=== PATIENT | female | born 1940 | race Caucasian/White ===

== ENCOUNTER 2016-09-30 15:34 | Observation (INO) | payer OTHER ==
[~2016-09-30] VITALS: Ht 162.6 cm; Wt 51.2 kg
[~2016-09-30 15:34] MED LIST: ASPEC81 PO; METO1TAB69 PO; NRV5 PO; ZCR20 PO
[2016-09-30] MEDS ORDERED: SODIUM CHLORIDE 0.9% 1000ML 1,000 ML IV SCH (16:36)
[2016-09-30 17:11] LABS: BASO % 0.1 %; BASO ABS # 0.01 K/uL (0-0.2); COMPLETE YES; EOS % 0.4 %; HEMATOCRIT 48.2 % (37-47); IG% 0.3 %; LYMPH % 21.7 %; LYMPH ABS # 1.48 K/uL (1.2-3.4); MEAN CELL VOLUME 91.5 fL (80-100); MEAN CORPUSCULAR HEMOGLOBIN 31.7 pg (25-34); MEAN CORPUSCULAR HGB CONC 34.6 g/dl (32-36); MEAN PLATELET VOLUME 9.9 fL (7.4-10.4); MONO % 7.2 %; NEUT % 70.3 %; PLATELET COUNT 227 K/uL (130-400); RED BLOOD COUNT 5.27 M/uL (4.2-5.4); WHITE BLOOD COUNT 6.82 K/uL (4.8-10.8)
[2016-09-30] MEDS ORDERED: NRV/10 PO (17:20)
[2016-09-30] MEDS ORDERED: CHOL1TAB42 PO (17:21)
[2016-09-30 17:28] LABS: BLOOD UREA NITROGEN 19 mg/dl (7-18); BUN/CREATININE RATIO 24.8 (10-20); CALCIUM 9.6 mg/dl (8.5-10.1); CARBON DIOXIDE 28 mmol/L (21-32); CHLORIDE 103 mmol/L (98-107); CREATININE 0.75 mg/dl (0.60-1.20); GLUCOSE 79 mg/dl (70-99); POTASSIUM 4.1 mmol/L (3.5-5.1); SODIUM 139 mmol/L (136-145)
--- NOTE | 2016-09-30 17:30 | DIAGNOSTIC IMAGING REPORT ---
SINGLE VIEW CHEST CLINICAL HISTORY: Strokelike symptoms. FINDINGS: An AP, portable, upright chest radiograph is compared to study dated 07/28/2014. The examination is degraded by portable technique and patient rotation. The heart is mildly enlarged. The pulmonary vascular is noncongested. The lungs appear hyperinflated. Emphysema is suggested and chronic interstitial thickening is similar to previous. No airspace consolidation, pleural effusion, or pneumothorax is seen. A 1.3 cm nodular density projects over the right lung base. The skeletal structures are osteopenic. The bony thorax is grossly intact. IMPRESSION: 1. Cardiomegaly and suspect emphysema. No acute cardiopulmonary abnormality is identified. 2. A 1.3 cm nodular density projects over the right lung base. This could represent artifact, a pulmonary nodule, or nipple shadow. Follow-up with a dedicated PA and lateral examination with nipple markers is recommended when the patient is clinically able. Electronically signed by: Remy Urias M.D. 09/30/2016 5:29 PM Dictated Date/Time: 09/30/2016 5:26 PM
[2016-09-30 17:31] LABS: PROTHROMBIN TIME (PATIENT) 10.5 SECONDS (9.0-12.0)
--- NOTE | 2016-09-30 18:40 | DIAGNOSTIC IMAGING REPORT ---
CT SCAN OF THE BRAIN WITHOUT IV CONTRAST CLINICAL HISTORY: Left-sided numbness. COMPARISON STUDY: CT of the brain dated 07/28/2014. TECHNIQUE: Unenhanced axial CT scan of the brain is performed from the vertex to the skull base. CT DOSE: 687.98 mGy.cm FINDINGS: Brain parenchyma: There are age-related involutional changes noting mild patchy subcortical and periventricular microangiopathic change. There is no hemorrhage, mass effect, or evidence of acute territorial ischemia by CT criteria. A chronic lacunar infarct versus perivascular space is again seen in the right basal ganglion. Santos-white matter is preserved. No extra-axial fluid collection is seen. Ventricles, sulci, cisterns: Prominent secondary to involutional change. Intracranial vasculature: There is atherosclerotic calcification of the cavernous carotid and vertebral arteries. Calvarium: Unremarkable. Sinuses and mastoids: There is complete opacification of the right maxillary antrum. Thickening and sclerosis of the sinus wall indicate chronicity. There is complete opacification of the anterior right ethmoid sinuses, as well as subtotal opacification of the right frontal sinus. The mastoid air cells are well pneumatized. Orbits: The bony orbits are grossly intact. There are bilateral ocular lens implants. IMPRESSION: 1. There is no hemorrhage, mass effect, or evidence of acute territorial ischemia by CT criteria. 2. Chronic appearing paranasal sinus disease as above. Electronically signed by: Remy Urias M.D. 09/30/2016 6:38 PM Dictated Date/Time: 09/30/2016 6:36 PM
[2016-09-30] MEDS ORDERED: LABETALOL HCL IV 5 MG/ML 20ML IV STA (18:49)
[2016-09-30] MEDS ORDERED: LISINOPRIL 5 MG TAB PO ONE (20:20)
[2016-09-30 20:27] LABS: ALKALINE PHOSPHATASE 88 U/L (45-117); ALT/SGPT 27 U/L (12-78); AST/SGOT 19 U/L (15-37); MAGNESIUM 2.5 mg/dl (1.8-2.4)
[2016-09-30 20:30] VITALS: BP 161/77; PULSE 74; TEMP 37; O2SAT 97; Ht 162.6 cm; Wt 51.2 kg
[2016-09-30] MEDS ORDERED: ACETAMINOPHEN 325 MG TAB PO PRN (20:30)
[2016-09-30] MEDS ORDERED: SODIUM CHLORIDE 0.9% 1000ML 1,000 ML IV ONE (20:30)
[2016-09-30] MEDS ORDERED: ONDANSETRON INJ 2 MG/ML 2 ML VIAL IV PRN (20:30)
[2016-09-30] MEDS ORDERED: TRAMADOL HCL 50 MG TAB PO PRN (20:30)
[2016-09-30] MEDS ORDERED: PHARMACIST DISCHARGE MED REC CONSULT PRN (20:30)
[2016-09-30] MEDS ORDERED: MoRPHine SULFATE 4 MG/ML 1 ML CARP\\VIAL IV PRN (20:30)
[2016-09-30] MEDS ORDERED: NITROGLYCERIN 0.4 MG SL PER TAB CHARGE SL PRN (20:30)
[2016-09-30] MEDS ORDERED: LISINOPRIL 2.5 MG TAB PO ONE (20:34)
[2016-09-30] MEDS: ENOXAPARIN 30 MG/0.3 ML SYR SC SCH (22:18)
--- NOTE | 2016-09-30 22:39 | EMERGENCY ROOM VISIT NOTE ---
History Report prepared by Loree: Alirio Panchal Under the Supervision of: Dr. Wallace Browning M.D. First contact with patient: 16:27 Chief Complaint: NEURO SYMPTOMS Stated Complaint: LF ARM/LEG NUMBNESS, History of Present Illness The patient is a 76 year old female who presents to the Emergency Room with complaints of episodes of neuro symptoms that started 2 mornings ago. She says that she has had a tendency to have intermittent silent migraines since the , where she just has an aura. The patient states that her eye doctor diagnosed her with the silent migraines. The patient says that she had not been having them frequently, but 2 mornings ago, she was having them all morning. She states that she sees jagged lights but can still see. The patient notes that they went away but yesterday morning, she woke up with left arm and left leg tingling, which she described as "falling asleep". She says that these tingling episodes were intermittent, and lasted more than a few seconds. The patient states that these episodes stopped yesterday afternoon, but have come back since then and have been intermittent today. She says that she did not have any auras yesterday, but did have a mild headache throughout yesterday. She states that today, she has not had any silent migraines or headache. The patient adds that she has been feeling some weakness on the left side, and is not overall feeling well. She notes that she has been having intermittent chills as well. The patient has a history of hypertension, and says that she has been taking her blood pressure medication as prescribed. She denies any fevers, chest pain, shortness of breath, abdominal pain, trouble walking, or trouble swallowing. The patient is not on any blood thinners. She has no history of strokes. Source of History: patient Onset: 2 mornings ago Position: other (global - neuro symptoms) Quality: other (silent migraines, tingling) Timing: other (episodes) Associated Symptoms: + chills, + headache, + weakness, No fevers, No chest pain, No SOB, No abdominal pain Note: Associated symptoms: Intermittent episodes of left arm and leg leg tingling. Silent migraine auras 2 days ago. Overall not feeling well. Denies trouble walking or trouble swallowing. Review of Systems See HPI for pertinent positives & negatives. A total of 10 systems reviewed and were otherwise negative. Past Medical & Surgical Medical Problems: (1) Hypertension (2) Left sided numbness (3) Left-sided weakness Family History Family history omitted secondary to patient's advanced age. Social History Smoking Status: Never Smoker Marital Status: Housing Status: lives with family Occupation Status: unemployed Current/Historical Medications Scheduled Amlodipine Besylate (Amlodipine Besylate), 10 MG PO DAILY Cholecalciferol (Vitamin D), 10,000 UNITS PO DAILY Allergies Coded Allergies: No Known Allergies (Unverified , 07/28/14) Physical Exam Vital Signs Date Time Temp Pulse Resp B/P (MAP) Pulse Ox O2 Delivery O2 Flow Rate FiO2 09/30/16 19:23 73 09/30/16 19:19 80 20 143/90 97 Room Air 09/30/16 17:35 85 20 199/93 97 Room Air 09/30/16 17:34 95 Room Air 09/30/16 15:49 36.7 107 16 173/92 96 Room Air Physical Exam Constitutional: Vital signs reviewed. Eyes: Pupils are equal round reactive to light. Conjunctiva are noninjected. ENT: Pharynx is clear without erythema or exudate. Mucous membranes are moist. Neck supple without meningeal signs. Respiratory: Clear to auscultation bilaterally. Breath sounds are equal bilaterally. Cardiovascular: Regular rate and rhythm. No rubs or gallops. GI: Soft, nondistended and nontender. Bowel sounds are present. Musculoskeletal: No peripheral edema. No lower extremity tenderness. Integumentary: No cyanosis. Neurological: The patient is awake and alert. Cranial nerves II-XII are intact. Motor is 5 out of 5 all extremities. Sensation is intact to light touch all extremities. Normal speech. No pronator drift. No limb ataxia. Psychiatric: Normal affect. Medical Decision & Procedures ER Provider Diagnostic Interpretation: Radiology results as stated below per my review and the radiologist's interpretation: CT SCAN OF THE BRAIN WITHOUT IV CONTRAST CLINICAL HISTORY: Left-sided numbness. COMPARISON STUDY: CT of the brain dated 07/28/2014. TECHNIQUE: Unenhanced axial CT scan of the brain is performed from the vertex to the skull base. CT DOSE: 687.98 mGy.cm FINDINGS: Brain parenchyma: There are age-related involutional changes noting mild patchy subcortical and periventricular microangiopathic change. There is no hemorrhage, mass effect, or evidence of acute territorial ischemia by CT criteria. A chronic lacunar infarct versus perivascular space is again seen in the right basal ganglion. Santos-white matter is preserved. No extra-axial fluid collection is seen. Ventricles, sulci, cisterns: Prominent secondary to involutional change. Intracranial vasculature: There is atherosclerotic calcification of the cavernous carotid and vertebral arteries. Calvarium: Unremarkable. Sinuses and mastoids: There is complete opacification of the right maxillary antrum. Thickening and sclerosis of the sinus wall indicate chronicity. There is complete opacification of the anterior right ethmoid sinuses, as well as subtotal opacification of the right frontal sinus. The mastoid air cells are well pneumatized. Orbits: The bony orbits are grossly intact. There are bilateral ocular lens implants. IMPRESSION: 1. There is no hemorrhage, mass effect, or evidence of acute territorial ischemia by CT criteria. 2. Chronic appearing paranasal sinus disease as above. Electronically signed by: Remy Urias M.D. 09/30/2016 6:38 PM Dictated Date/Time: 09/30/2016 6:36 PM SINGLE VIEW CHEST CLINICAL HISTORY: Strokelike symptoms. FINDINGS: An AP, portable, upright chest radiograph is compared to study dated 07/28/2014. The examination is degraded by portable technique and patient rotation. The heart is mildly enlarged. The pulmonary vascular is noncongested. The lungs appear hyperinflated. Emphysema is suggested and chronic interstitial thickening is similar to previous. No airspace consolidation, pleural effusion, or pneumothorax is seen. A 1.3 cm nodular density projects over the right lung base. The skeletal structures are osteopenic. The bony thorax is grossly intact. IMPRESSION: 1. Cardiomegaly and suspect emphysema. No acute cardiopulmonary abnormality is identified. 2. A 1.3 cm nodular density projects over the right lung base. This could represent artifact, a pulmonary nodule, or nipple shadow. Follow-up with a dedicated PA and lateral examination with nipple markers is recommended when the patient is clinically able. Electronically signed by: Remy Urias M.D. 09/30/2016 5:29 PM Dictated Date/Time: 09/30/2016 5:26 PM Laboratory Results 09/30/16 16:55 Red Blood Count 5.27, Mean Corpuscular Volume 91.5, Mean Corpuscular Hemoglobin 31.7, Mean Corpuscular Hemoglobin Concent 34.6, Mean Platelet Volume 9.9, Neutrophils (%) (Auto) 70.3, Lymphocytes (%) (Auto) 21.7, Monocytes (%) (Auto) 7.2, Eosinophils (%) (Auto) 0.4, Basophils (%) (Auto) 0.1, Neutrophils # (Auto) 4.79, Lymphocytes # (Auto) 1.48, Monocytes # (Auto) 0.49, Eosinophils # (Auto) 0.03, Basophils # (Auto) 0.01 09/30/16 16:55 Test 09/30/16 16:55 09/30/16 17:08 White Blood Count 6.82 K/uL (4.8-10.8) Red Blood Count 5.27 M/uL (4.2-5.4) Hemoglobin 16.7 g/dL (12.0-16.0) Hematocrit 48.2 % (37-47) Mean Corpuscular Volume 91.5 fL (80-100) Mean Corpuscular Hemoglobin 31.7 pg (25-34) Mean Corpuscular Hemoglobin Concent 34.6 g/dl (32-36) Platelet Count 227 K/uL (130-400) Mean Platelet Volume 9.9 fL (7.4-10.4) Neutrophils (%) (Auto) 70.3 % Lymphocytes (%) (Auto) 21.7 % Monocytes (%) (Auto) 7.2 % Eosinophils (%) (Auto) 0.4 % Basophils (%) (Auto) 0.1 % Neutrophils # (Auto) 4.79 K/uL (1.4-6.5) Lymphocytes # (Auto) 1.48 K/uL (1.2-3.4) Monocytes # (Auto) 0.49 K/uL (0.11-0.59) Eosinophils # (Auto) 0.03 K/uL (0-0.5) Basophils # (Auto) 0.01 K/uL (0-0.2) RDW Standard Deviation 48.7 fL (36.4-46.3) RDW Coefficient of Variation 14.4 % (11.5-14.5) Immature Granulocyte % (Auto) 0.3 % Immature Granulocyte # (Auto) 0.02 K/uL (0.00-0.02) Prothrombin Time 10.5 SECONDS (9.0-12.0) Prothromb Time International Ratio 1.0 (0.9-1.1) Activated Partial Thromboplast Time 26.8 SECONDS (21.0-31.0) Partial Thromboplastin Ratio 1.0 Anion Gap 8.0 mmol/L (3-11) Est Creatinine Clear Calc Drug Dose 51.1 ml/min Estimated GFR () 88.5 Estimated GFR (Non- 76.3 BUN/Creatinine Ratio 24.8 (10-20) Calcium Level 9.6 mg/dl (8.5-10.1) Magnesium Level 2.5 mg/dl (1.8-2.4) Total Bilirubin 0.6 mg/dl (0.2-1) Direct Bilirubin < 0.1 mg/dl (0-0.2) Aspartate Amino Transf (AST/SGOT) 19 U/L (15-37) Alanine Aminotransferase (ALT/SGPT) 27 U/L (12-78) Alkaline Phosphatase 88 U/L (45-117) Troponin I < 0.015 ng/ml (0-0.045) Total Protein 8.4 gm/dl (6.4-8.2) Albumin 4.2 gm/dl (3.4-5.0) Thyroid Stimulating Hormone (TSH) 1.390 uIu/ml (0.300-4.500) Bedside Glucose 78 mg/dl (70-90) Laboratory results as reviewed by me. Medications Administered Medications (Trade) Dose Ordered Sig/Tejas Route Start Time Stop Time Status Last Admin Dose Admin Sodium Chloride 1,000 ml @ 50 mls/hr Q20H IV 09/30/16 16:36 09/30/16 21:06 DC 09/30/16 17:30 50 MLS/HR ECG Indication: other (neurologic symptoms) Rate (beats per minute): 78 Rhythm: normal sinus Findings: Q waves (inferiorly and in V1), no ectopy ED Course 1628: The patient was evaluated in room C10. A complete history and physical exam was performed. 1636: Ordered NSS 1000 ml @ 50 mls/hr IV. 1835: I reevaluated and updated the patient. She denies any numbness or weakness since she got here. 1848: I reevaluated the patient and her blood pressure is 190/111. She has no neurologic symptoms. The patient verbally expressed understanding and agreement of the treatment plan. The patient will be evaluated for further treatment. 1848: Ordered Normodyne IV 10 mg IV. 1849: I discussed the patient with Dr. Brett Milton manager of network - he will evaluate the patient for further treatment. Medical Decision This is a 76-year-old female who presents with numbness and weakness on the left side of her body with headache. Differential diagnosis includes intracranial mass, intracranial hemorrhage, TIA, CVA, metabolic derangement. I did perform a limited focused review of portions of the patient's old chart on the electronic medical record. The patient has had no recent pertinent visits to this hospital. I did evaluate the patient as noted above. Patient is presenting with intermittent left sided numbness and weakness. She also has a headache. She has a history of what she describes as silent migraines where she develops scotomas without headaches or any other symptoms. She did have these on Saturday but they stopped. She developed a headache on Saturday when she also developed her neurologic symptoms. Currently she is neurologically intact. IV access was established. The patient was placed on a continuous conveyor monitor. I did order and personally review the patient's 12-lead EKG and chest x-ray as described above. I did order and review the patient's blood work as noted in the electronic medical record. I did order a CT of the head. I did review the images myself as well as the radiology report as described above. There is no evidence of acute infarct. I did discuss the test results with the patient. The patient's symptoms may be related to an atypical migraine but they also may represent TIAs. Given her risk factors and age I did feel expedited workup via inpatient would be prudent especially since he does not have a regular physician. Also her blood pressure remains rather him. I did treat her with labetalol IV. I did discuss case with the hospitalist and case consultant. Medication Reconcilliation Current Medication List: was personally reviewed by me Blood Pressure Screening Patient's blood pressure: Elevated blood pressure Consults Time Called: 1847 Consulting Physician: Dr. Brett Milton manager of network Returned Call: 1849 I discussed the patient with Dr. Brett Milton manager of network - he will evaluate the patient for further treatment. Impression Primary Impression: Numbness on left side Additional Impressions: Left-sided weakness Hypertensive urgency Scribe Attestation The scribe's documentation has been prepared under my direct and personally reviewed by me in its entirety. I confirm that the note above accurately reflects all work, treatment, procedures, and medical decision making performed by me. Departure Information Dispostion Being Evaluated By Hospitalist Referrals No Doctor, Assigned (PCP) Patient Instructions My [facility] Problem Qualifiers
[2016-10-01] VITALS (11 sets, daily range): BP systolic 131–222; BP diastolic 70–106; PULSE 57–105; TEMP 36.7–37.2; O2SAT 95–97
[2016-10-01] MEDS ORDERED: IV FLUIDS COMPLETED PRN (00:15)
--- NOTE | 2016-10-01 05:47 | HISTORY & PHYSICAL EXAMINATION ---
DATE OF ADMISSION: 10/01/2016 PRIMARY CARE PHYSICIAN: Dr. Galindo. CHIEF COMPLAINT: Numbness, left arm and left leg. HISTORY OF PRESENT ILLNESS: History obtained from the patient and records. Medical history significant for migraine, hypertension. Recent confinement last July 2014 for hypertensive urgency. Patient discharged on amlodipine. Patient has had "silent migraine" symptoms for about 20 years. Aura, but no headache symptoms occurring 3-4 times a year, lasting about 20 minutes. About 2 days ago, she had an attack of silent migraine one after the other, unusual, transient left upper extremity and lower extremity numbness. She also noted blood pressure higher than usual, systolic blood pressure 200s. Patient admits to titration of home Norvasc dose based on her blood pressure. She took the full 10 mg of her prescribed Norvasc yesterday and today. Px took ASA at home in the last 2 days. Px brought to the Emergency Room. Left-sided numbness resolved upon arrival at the emergency room. Systolic blood pressure upon arrival at the ER was normal 190s. Patient given Labetalol. MEDICAL HISTORY: As above. SURGERIES: She has had dental surgery. HOME MEDICATIONS: Include amlodipine, vitamin D. ALLERGIES: No known drug allergies. FAMILY HISTORY: Heart disease. 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 REVIEW OF SYSTEMS: As per HPI, all other ROS negative. PHYSICAL EXAMINATION: VITAL SIGNS: Blood pressure was noted to be 189/80, pulse rate noted to be 85, RR 18, T 37 O2 sats 98 on room. GENERAL: Noted to be pleasant, no respiratory distress, looks younger than stated age. SKIN: Normal color. HEENT: [place] palpebral conjunctivae. Dry mucosa. NECK: No JVD. Supple. CHEST: Clear to auscultation. HEART: Regular rate and rhythm. ABDOMEN: Soft. NT EXTREMITIES: No edema. No tenderness NEUROLOGIC: No gross focality. LABORATORY AND IMAGING DATA: Hemoglobin was noted to be 16.7, hematocrit 48.2, white cell count was 6.8, and platelets 227. Sodium 139, potassium 4.1, chloride 103, CO2 28, BUN 19, creatinine 0.7, glucose 79. CT head, no hemorrhage. Chest x-ray cardiomegaly, suspect emphysema, and 1.3 nodular density projecting right lung base. EKG as per my interpretation heart rate 80, normal sinus rhythm, Q-waves inferior leads. ASSESSMENT: 1. Transient numbness of the LUE, LLE Increased frequency of her usual "silent migraine" (aura without actual headache , as per patient) attacks at home about 2 days ago transient ischemic attack versus complicated migraine. 2. Hypertensive urgency secondary to above. 3. Abnormal chest x-ray, right lung base nodule versus artifact. PLAN: Observation PCU, neuro checks ASA for now for secondary stroke prevention until stroke ruled out. MRI/MRA of the brain. May need additional stroke workup pending MRI results. Permissive hypertension until stroke ruled out. Replace Norvasc with low dose SACHI inhibitor given suboptimal pressure control despite maximal dose. Two view chest x-ray in AM RE abnormal pCXR PT, OT eval. DVT prophylaxis, Lovenox subq. Full code. MTDD
[2016-10-01 06:52] LABS: CALCIUM 8.5 mg/dl (8.5-10.1); CREATININE 0.55 mg/dl (0.60-1.20); POTASSIUM 3.7 mmol/L (3.5-5.1)
--- NOTE | 2016-10-01 07:15 | DIAGNOSTIC IMAGING REPORT ---
MRI OF THE BRAIN WITHOUT CONTRAST CLINICAL HISTORY: Stroke. Left arm and leg numbness. COMPARISON STUDY: Head CT September 30, 2016. TECHNIQUE: Utilizing a 1.5 [place] magnet and dedicated coil, multiplanar, multiecho imaging of the brain was performed without IV contrast. FINDINGS: There are no areas of restricted diffusion. No acute intracranial hemorrhage, midline shift or mass effect is present. Ventricular system is normal for age. Basilar cisterns are patent. There are no extra-axial collections. Flow-voids for the major intracranial vessels are present. White matter T2 hyperintense foci suggest mild to moderate small vessel disease. T2 hyperintense foci within the bilateral basal ganglia could reflect prominent perivascular spaces or old lacunar infarcts. The right maxilla sinus is opacified. There is slight widening of the right maxillary sinus ostium. The right anterior ethmoid sinuses are opacified. Right frontal sinus is opacified. IMPRESSION: 1. No acute intracranial findings. 2. Right maxillary, anterior ethmoid and frontal sinus opacification. Electronically signed by: Jesus Vee M.D. 10/01/2016 7:14 AM Dictated Date/Time: 10/01/2016 7:11 AM
--- NOTE | 2016-10-01 07:47 | DIAGNOSTIC IMAGING REPORT ---
MRA HEAD WITHOUT CONTRAST HISTORY: 76 years-old Female acute strokelike symptoms with left arm and left leg numbness. History of migraines and high blood pressure. COMPARISON: MRI brain and CT head of same day TECHNIQUE: MRA of the head without contrast was obtained utilizing 3-D [id number] sequencing with MIP reformats. FINDINGS: Bilateral internal carotid arteries are patent. There is mild narrowing of the petrous portion right internal carotid artery, likely secondary to atherosclerotic plaquing or tortuosity. No high-grade stenosis, aneurysm or proximal branch occlusion identified. The bilateral M1 and A1 segments are patent. The anterior communicating artery is also within normal limits. The left vertebral artery is dominant. The right vertebral artery is very diminutive in size, likely congenital variation with high-grade stenosis thought to be less likely. The basilar artery is normal and patent. Note is made of origin of the left posterior cerebral artery. Bilateral posterior cerebral arteries are patent. There is a focal area of CSF like signal within the inferior right lentiform nucleus, 7 x 5 mm suggesting remote lacunar infarction or prominent perivascular space. Right maxillary sinus is opacified. Right frontal and ethmoid sinus disease also noted. IMPRESSION: 1. No definite High-grade stenosis, proximal branch occlusion or aneurysm identified. 2. Diminutive size of the right vertebral artery is likely secondary to congenital variation with dominant left vertebral artery. 3. Prominent perivascular space or remote lacunar infarction of the right lentiform nucleus. The above report was generated using voice recognition software. It may contain grammatical, syntax or spelling errors. Electronically signed by: Jcarlos Elliott M.D. 10/01/2016 7:45 AM Dictated Date/Time: 10/01/2016 7:36 AM
[2016-10-01 07:49] LABS: BASO % 0.4 %; BASO ABS # 0.02 K/uL (0-0.2); COMPLETE YES; EOS % 1.6 %; HEMATOCRIT 39.9 % (37-47); LYMPH % 32.9 %; LYMPH ABS # 1.63 K/uL (1.2-3.4); MEAN CELL VOLUME 91.3 fL (80-100); MEAN CORPUSCULAR HEMOGLOBIN 31.1 pg (25-34); MEAN CORPUSCULAR HGB CONC 34.1 g/dl (32-36); MEAN PLATELET VOLUME 9.8 fL (7.4-10.4); MONO % 12.1 %; PLATELET COUNT 211 K/uL (130-400); RED BLOOD COUNT 4.37 M/uL (4.2-5.4); WHITE BLOOD COUNT 4.95 K/uL (4.8-10.8)
--- NOTE | 2016-10-01 08:09 | DIAGNOSTIC IMAGING REPORT ---
CHEST 2 VIEWS ROUTINE CLINICAL HISTORY: 76 years-old Female presenting with abn pcxr. TECHNIQUE: PA and lateral views of the chest were obtained. COMPARISON: 09/30/2016 5:12 PM. FINDINGS: Atherosclerosis of aortic arch. Cardiac silhouette top normal in size. Hyperinflation. Previously noted nodular opacity at the right lung apex is compatible with a nipple shadow after placement of nipple markers. No focal infiltrate. No pleural effusion or pneumothorax. Degenerative changes of the right glenohumeral joint. Upper abdomen normal. IMPRESSION: 1. The previous seen noted nodular opacity at the right lung apex is consistent with a nipple shadow. 2. Hyperinflation may suggest emphysema. No focal infiltrate. Electronically signed by: Mumtaz Coley M.D. 10/01/2016 8:08 AM Dictated Date/Time: 10/01/2016 8:06 AM
[2016-10-01] MEDS: ASPIRIN 325 MG ECTAB PO SCH (08:32)
[2016-10-01] MEDS ORDERED: LISINOPRIL 5 MG TAB PO SCH (09:00)
[2016-10-01] MEDS ORDERED: LISINOPRIL 2.5 MG TAB PO SCH (09:00)
--- NOTE | 2016-10-01 10:05 | Progress Note ---
Medicine Progress Note Date & Time of Visit: Oct 01, 2016 at 09:33. Subjective Pt was seen and examined Sitting in bed comfortable with no distress Pt said that she feels fine Denies any chest pain, palpitation, dizziness, weakness and SOB Objective Last 8 Hrs Date Time Temp Pulse Resp B/P (MAP) Pulse Ox O2 Delivery O2 Flow Rate FiO2 10/01/16 07:19 36.7 66 18 135/81 (99) 96 Room Air 10/01/16 04:10 97 Room Air 10/01/16 04:10 37.0 71 18 132/72 (92) 97 Room Air Physical Exam: General- Very pleasant, stroke like symptoms Head- atraumatic Eyes- PERRL, EOMI ENT- oropharynx clear Neck- supple, no JVD Lungs- clear to auscultation Heart- regular rhythm; no murmur Abdomen- normal bowel sounds, soft, nontender Extremities- no pretibial edema, no calf tenderness Neuro- alert, oriented x 3; PERRL, EOMI; no facial palsy; no dysarthria; motor 5 /5 bilaterally, sensation intact Skin- warm & dry Laboratory Results: Last 24 Hours Test 09/30/16 16:55 09/30/16 17:08 10/01/16 05:49 10/01/16 07:25 White Blood Count 6.82 K/uL 4.95 K/uL Red Blood Count 5.27 M/uL 4.37 M/uL Hemoglobin 16.7 g/dL 13.6 g/dL Hematocrit 48.2 % 39.9 % Mean Corpuscular Volume 91.5 fL 91.3 fL Mean Corpuscular Hemoglobin 31.7 pg 31.1 pg Mean Corpuscular Hemoglobin Concent 34.6 g/dl 34.1 g/dl Platelet Count 227 K/uL 211 K/uL Mean Platelet Volume 9.9 fL 9.8 fL Neutrophils (%) (Auto) 70.3 % 53.0 % Lymphocytes (%) (Auto) 21.7 % 32.9 % Monocytes (%) (Auto) 7.2 % 12.1 % Eosinophils (%) (Auto) 0.4 % 1.6 % Basophils (%) (Auto) 0.1 % 0.4 % Neutrophils # (Auto) 4.79 K/uL 2.62 K/uL Lymphocytes # (Auto) 1.48 K/uL 1.63 K/uL Monocytes # (Auto) 0.49 K/uL 0.60 K/uL Eosinophils # (Auto) 0.03 K/uL 0.08 K/uL Basophils # (Auto) 0.01 K/uL 0.02 K/uL RDW Standard Deviation 48.7 fL 48.8 fL RDW Coefficient of Variation 14.4 % 14.4 % Immature Granulocyte % (Auto) 0.3 % 0.0 % Immature Granulocyte # (Auto) 0.02 K/uL 0.00 K/uL Prothrombin Time 10.5 SECONDS Prothromb Time International Ratio 1.0 Activated Partial Thromboplast Time 26.8 SECONDS Partial Thromboplastin Ratio 1.0 Sodium Level 139 mmol/L 142 mmol/L Potassium Level 4.1 mmol/L 3.7 mmol/L Chloride Level 103 mmol/L 108 mmol/L Carbon Dioxide Level 28 mmol/L 27 mmol/L Anion Gap 8.0 mmol/L 7.0 mmol/L Blood Urea Nitrogen 19 mg/dl 19 mg/dl Creatinine 0.75 mg/dl 0.55 mg/dl Est Creatinine Clear Calc Drug Dose 51.1 ml/min 70.1 ml/min Estimated GFR () 88.5 104.1 Estimated GFR (Non- 76.3 89.8 BUN/Creatinine Ratio 24.8 34.0 Random Glucose 79 mg/dl 77 mg/dl Calcium Level 9.6 mg/dl 8.5 mg/dl Magnesium Level 2.5 mg/dl Total Bilirubin 0.6 mg/dl Direct Bilirubin < 0.1 mg/dl Aspartate Amino Transf (AST/SGOT) 19 U/L Alanine Aminotransferase (ALT/SGPT) 27 U/L Alkaline Phosphatase 88 U/L Troponin I < 0.015 ng/ml Total Protein 8.4 gm/dl Albumin 4.2 gm/dl Thyroid Stimulating Hormone (TSH) 1.390 uIu/ml Bedside Glucose 78 mg/dl 85 mg/dl Triglycerides Level 141 mg/dl Cholesterol Level 227 mg/dl HDL Cholesterol 57 mg/dl LDL Cholesterol, Calculated 142 mg/dl VLDL Cholesterol, Calculated 28 mg/dl Cholesterol/HDL Ratio 4.0 Assessment & Plan Stroke like symptoms Present with transient left upper extremity and lower extremity numbness with elevated BP Possible related to silent migraine VS TIA All Stroke work up negative for MRI of head, MRA of Head and CT head Continue aspirin No statin added because pt refused Statin benefits discussed with patient PT/OT Neurology consult Case discussed with Dr. Hu and OK to be discharged home today Follow up with neurology Dr. Hu in 1 month Dyslipidemia Chol 227, LDL 142, HDL 57 Not on statin refused to take statin for now she wants to try lifestyles modification and if fails, she will do the statin HTN BP was elevated on admission possible situational Pt said that she sometimes takes amlodipine 10 mg if BP high and 5 mg if BP in the low side BP was good this morning and started to elevate Lisinopril 2.5 mg was added last night, will continue lisinopril 2.5 mg Her PCP will titrate it up if needed Advised pt to continue amlodipine 10 mg She is going to continue monitoring BP in the next few days and bring her BP log to her next appointment with her PCP Follow a low salt diet Migraine Silent Has been worsening lately Not on any med. Neuro consulted DVT px On Lovenox CODE STATUS FULL CODE Disposition Will discharge home today Consultants: Neuro Current Inpatient Medications: Current Inpatient Medications Medications (Trade) Dose Ordered Sig/Tejas Route Start Time Stop Time Status Last Admin Dose Admin Enoxaparin Sodium (Lovenox Inj) 30 mg DAILY@2100 SC 09/30/16 21:00 10/30/16 20:59 09/30/16 22:18 30 MG Sodium Chloride 1,000 ml @ 60 mls/hr [id number] ONCE IV 09/30/16 20:30 10/01/16 13:09 09/30/16 22:18 60 MLS/HR Acetaminophen (Tylenol Tab) 650 mg Q4H PRN PO 09/30/16 20:30 10/30/16 20:29 Nitroglycerin (Nitrostat Tab) 0.4 mg UD PRN SL 09/30/16 20:30 10/30/16 20:29 Aspirin (Ecotrin Tab) 325 mg QAM PO 10/01/16 09:00 10/31/16 08:59 10/01/16 08:32 325 MG Miscellaneous Information (Pharmacist Discharge Med Rec Consult) 1 ea UD PRN N/A 09/30/16 20:30 10/30/16 20:29 Ondansetron HCl (Zofran Inj) 4 mg Q6H PRN IV 09/30/16 20:30 10/30/16 20:29 Tramadol HCl (Ultram Tab) 25 mg Q6H PRN PO 09/30/16 20:30 10/30/16 20:29 Morphine Sulfate (MoRPHine SULFATE INJ) 4 mg Q3H PRN IV 09/30/16 20:30 10/14/16 20:29 Miscellaneous (Iv Fluids Completed) 1 ea PRN PRN N/A 10/01/16 00:15 10/01/17 00:14 Lisinopril (Zestril Tab) 2.5 mg HS PO 10/01/16 21:00 10/31/16 08:59
--- NOTE | 2016-10-01 16:39 | CONSULTATION REPORT ---
DATE OF CONSULTATION: 10/01/2016 FOR: Dr. Townsend. 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 She was discharged on amlodipine. She has had no issues other than her recurrent visual aura migraine without headache, occurring several days a year. She about 2 days ago had an attack of what she calls silent migraine one after the other with transient left upper and left lower extremity numbness and has never had anything like this in the past. These recurred several times, she presented for admission yesterday and has been asymptomatic ever since. She took her blood pressure at home and noted them to be in the systolic 200 range. She took an aspirin at home for the last several days, but does not normally take it. Her systolic blood pressure in the ER was 190, she was given labetalol and that she has had a series of imaging studies including MRIs and MRAs, etc., none of which show anything significant other than some expected white matter changes which could be compatible with her age, her underlying hypertension and migraines. Nothing in acute type has been reported. PAST MEDICAL HISTORY: As noted above. Surgically, she has had some dental surgery but nothing major. MEDICATIONS: Her only home medication include amlodipine, vitamin D, and for the past 3 days 1 aspirin. ALLERGIES: She has no drug allergies. FAMILY HISTORY: Positive for heart disease. SOCIAL HISTORY: Reveals her to be a nonsmoker. She does not consume alcohol. 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 She lives in [facility]. REVIEW OF SYSTEMS: Reveals no recent systemic illnesses. No issues with her left head, eyes, ears, nose and throat other than low frequency ocular migraine, she denies any cardiovascular issues other than hypertension, denies any palpitations, history of atrial fibrillation. There are no pulmonary problems, gastrointestinal problems, genitourinary issues or significant musculoskeletal problems. Neurologically, she has never had any episodes of numbness involving these extremities is part of her migraine in the past, but did not have any weakness with them, was able to walk and the events themselves would last minutes to perhaps an hour and then clear up. PHYSICAL EXAMINATION: VITAL SIGNS: On admission, her blood pressure was 189/90, pulse rate was 85, respirations 18, O2 saturation 90%. As recorded by Dr. Wade, there were no abnormalities on examination of head, eyes, ears, nose and throat, heart, lungs abdomen or extremities. NEUROLOGIC: Today neurologically she is awake, alert, oriented in 3 spheres. She has normal extraocular movements. Clear speech. No visual field cuts. Ocular fundi are poorly seen. Facial motility and strength is normal. Facial sensation is normal. Tongue protrudes in the midline and speech is clear. I do not hear any carotid bruits. There are no abnormalities on testing of gait, although was limited because of the presence of an IV pole, but there is certainly no spasticity, ataxia, drift, pronation sign, tremor, tics or choreiform activity and [id number] and [id number] testing was well done. Facility of rapid repetitive motions was normal. Reflexes were 1+ and symmetrical. Toes were downgoing. No Emanuel signs were seen. Muscle strength testing was normal and sensory examination was intact to all primary modalities. IMPRESSION AND PLAN: This woman presented with episodic numbness and tingling in left arm and leg occurring in the setting of migraines with only ocular manifestations and in the setting of elevated blood pressures. We do not find any evidence for a new cerebrovascular accident, she has had evidence for small vessel disease and her MRA shows no significant intracranial stenoses. 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 According to what she tells me, Dr. Townsend is going to discharge her today and I do not have any problem with that as she has been asymptomatic now for 24 hours and her blood pressures down. She should be sent home on aspirin as she was not taking this on a regular basis. She and I discussed the option of dual antiplatelet treatment and I do not think she is going to be willint to accept the risk of bleeding on this and would prefer to be sent home only on aspirin. In theory, she should have an echocardiogram, but the events were so stereotypic that I think the likely reflect intracranial small vessel disease, perhaps exacerbated by the hypertension and I think we could defer on this and I can take a look at her in my office in about a month, assuming of course that she does not have recurrent events of similar type requiring readmission. I would send her home on 81 mg of aspirin. I would not add Plavix. I would keep her blood pressure under control. She needs to follow up with a primary care physician and from a neurologic point of view, we will see how things play out over the next month. I told her that in my opinion, these were probably not migraines as they would reflect this significant departure from her prior migrainous symptomatology and were likely recurrent small deep subcortical pernaps perithalamic or thalamic perforating artery tias MTDD
[2016-10-01] MEDS ORDERED: ASPI-232 PO (17:42)
[2016-10-01] MEDS ORDERED: LSN25 PO (17:42)
[2016-10-01] MEDS: LISINOPRIL 2.5 MG TAB PO SCH (17:44)
--- NOTE | 2016-10-01 17:54 | Discharge Instructions ---
Discharge Instructions Date of Service Oct 01, 2016. Admission Reason for Admission: Left Sided Numbness, Left Sided Weakness Discharge Discharge Diagnosis / Problem: Transient ischemic attack, Hypertension, Silent migraines Discharge Goals Goal(s): Decrease discomfort, Improve function, Improve disease control Activity Recommendations Activity Limitations: resume your previous activity (as tolerated) . Instructions / Follow-Up Instructions / Follow-Up Discharge home Follow up appointment with your physician Dr. Galindo on Oct 05 @ 1PM Call to schedule a follow up appointment with neurology Dr. Hu in 1 month [address] [facility] [address], [place] [address] If your symptoms reoccur, please seek medical attention Monitor blood pressure and bring blood pressure log to your next appointment with your doctor Follow up a low salt diet and a low cholesterol diet Continue aspirin daily Adding Lisinopril 5 mg daily, your physician will titrate it up if needed Check BMP within 1 week after starting lisinopril to check electrolytes and kidney function Check cholesterol in 3 to 4 months Current Hospital Diet Patient's current hospital diet: AHA Diet (Heart Healthy) Discharge Diet Recommended Diet: AHA Diet (Heart Healthy), Low Sodium Diet (2gm Na) Pending Studies Studies pending at discharge: no Laboratory Results Lipid Panel Test 10/01/16 05:49 Range/Units Triglycerides Level 141 0-150 mg/dl Cholesterol Level 227 H 0-200 mg/dl HDL Cholesterol 57 mg/dl Cholesterol/HDL Ratio 4.0 LDL Cholesterol, Calculated 142 mg/dl Medical Emergencies . Who to Call and When: Medical Emergencies: If at any time you feel your situation is an emergency, please call 911 immediately. . Non-Emergent Contact Non-Emergency issues call your: Primary Care Provider Call Non-Emergent contact if: you have any medication questions . . "Provider Documentation" section prepared by Cheikh Townsend. . VTE Core Measure Inpt VTE Proph given/why not?: Enoxaparin (Lovenox)SQ
[2016-10-01] MEDS ORDERED: HydrALAZINE HCL 20 MG/ML VIAL IV. PRN (19:15)
[2016-10-01] MEDS ORDERED: LABETALOL HCL IV 5 MG/ML 20ML IV ONE (20:30)
[2016-10-01] MEDS ORDERED: LORAZEPAM 0.5 MG TAB PO ONE (20:30)
[2016-10-01] MEDS: ENOXAPARIN 30 MG/0.3 ML SYR SC SCH (20:43)
[2016-10-02] VITALS: BP 106/68; PULSE 84; TEMP 37; O2SAT 95; O2SAT 97
[2016-10-02 04:00] VITALS: PULSE 68; TEMP 36.5; O2SAT 96; O2SAT 97
[2016-10-02 07:15] VITALS: BP 153/73; PULSE 74; TEMP 37; O2SAT 97
[2016-10-02] MEDS: ASPIRIN 325 MG ECTAB PO SCH (08:01)
[2016-10-02] MEDS: LISINOPRIL 2.5 MG TAB PO SCH (08:01)
[2016-10-02 11:08] VITALS: BP 166/89; PULSE 73; TEMP 37; O2SAT 98
[2016-10-02] MEDS ORDERED: LSN5 PO (12:18)
--- NOTE | 2016-10-02 12:38 | Progress Note ---
Medicine Progress Note Date & Time of Visit: Oct 02, 2016 at 12:19. Subjective Pt was seen and examined Sitting in bed comfortable with no distress Discharge was cancelled because blood pressure was elevated Pt said that she feels fine this morning BP improved this morning I think the elevated BP might be related to anxiety because the more we checked BP and the more she became anxious and BP started to get higher Denies any headache palpitation, dizziness and SOB Objective Last 8 Hrs Date Time Temp Pulse Resp B/P (MAP) Pulse Ox O2 Delivery O2 Flow Rate FiO2 10/02/16 11:08 37.0 73 18 166/89 (114) 98 Room Air 10/02/16 07:45 Room Air 10/02/16 07:15 37.0 74 18 153/73 (99) 97 Room Air Physical Exam: General- Very pleasant, stroke like symptoms Head- atraumatic Eyes- PERRL, EOMI ENT- oropharynx clear Neck- supple, no JVD Lungs- clear to auscultation Heart- regular rhythm; no murmur Abdomen- normal bowel sounds, soft, nontender Extremities- no pretibial edema, no calf tenderness Neuro- alert, oriented x 3; PERRL, EOMI; no facial palsy; no dysarthria; motor 5 /5 bilaterally, sensation intact Skin- warm & dry Laboratory Results: Last 24 Hours Test 10/01/16 16:14 10/01/16 20:22 Bedside Glucose 84 mg/dl 100 mg/dl Assessment & Plan Stroke like symptoms Present with transient left upper extremity and lower extremity numbness with elevated BP Possible related to silent migraine VS TIA All Stroke work up negative for MRI of head, MRA of Head and CT head Continue aspirin No statin added because pt refused Statin benefits discussed with patient PT/OT Neurology consult Case discussed with Dr. Hu and OK to be discharged home today Follow up with neurology Dr. Hu in 1 month Dyslipidemia Chol 227, LDL 142, HDL 57 Not on statin refused to take statin for now she wants to try lifestyles modification and if fails, she will do the statin HTN BP was elevated on admission possible situational Pt said that she sometimes takes amlodipine 10 mg if BP high and 5 mg if BP in the low side BP was good this morning and started to elevate Lisinopril 2.5 mg was added last night, will continue lisinopril 2.5 mg Her PCP will titrate it up if needed Advised pt to continue amlodipine 10 mg She is going to continue monitoring BP in the next few days and bring her BP log to her next appointment with her PCP Follow a low salt diet 10/02 Discharge was cancelled last night due to elevated BP above the 200's Elevated BP mostly related to anxiety because the more we checked BP and the more she became anxious and BP started to get higher After given Ativan 0.5 mg last night her BP improved Continue in amlodipine 10mg daily Will increase lisinopril to 5 mg HS Check BPM within 1 week Continue monitor BP Advised pt to check her BP daily but no more than 2 times a day because of the anxiety Follow up appointment with Dr. Galindo on 10/05/16 @ 1 PM Migraine Silent Has been worsening lately Not on any med. Neuro consulted DVT px On Lovenox CODE STATUS FULL CODE Disposition Will discharge home today Follow up appointment with your PCP Dr. Galindo on 10/05/16 @ 1 PM Consultants: Neuro Current Inpatient Medications: Current Inpatient Medications Medications (Trade) Dose Ordered Sig/Tejas Route Start Time Stop Time Status Last Admin Dose Admin Enoxaparin Sodium (Lovenox Inj) 30 mg DAILY@2100 SC 09/30/16 21:00 10/30/16 20:59 10/01/16 20:43 30 MG Acetaminophen (Tylenol Tab) 650 mg Q4H PRN PO 09/30/16 20:30 10/30/16 20:29 Nitroglycerin (Nitrostat Tab) 0.4 mg UD PRN SL 09/30/16 20:30 10/30/16 20:29 Aspirin (Ecotrin Tab) 325 mg QAM PO 10/01/16 09:00 10/31/16 08:59 10/02/16 08:01 325 MG Miscellaneous Information (Pharmacist Discharge Med Rec Consult) 1 ea UD PRN N/A 09/30/16 20:30 10/30/16 20:29 Ondansetron HCl (Zofran Inj) 4 mg Q6H PRN IV 09/30/16 20:30 10/30/16 20:29 Tramadol HCl (Ultram Tab) 25 mg Q6H PRN PO 09/30/16 20:30 10/30/16 20:29 Morphine Sulfate (MoRPHine SULFATE INJ) 4 mg Q3H PRN IV 09/30/16 20:30 10/14/16 20:29 Miscellaneous (Iv Fluids Completed) 1 ea PRN PRN N/A 10/01/16 00:15 10/01/17 00:14 Lisinopril (Zestril Tab) 2.5 mg HS PO 10/01/16 21:00 10/31/16 08:59 10/02/16 08:01 2.5 MG Hydralazine HCl (HydrALAZINE INJ) 10 mg Q6 PRN IV. 10/01/16 19:15 10/31/16 19:14 Future Hold 10/01/16 19:26 10 MG
--- NOTE | 2016-10-02 12:59 | Discharge Instructions ---
Discharge Instructions Date of Service Oct 02, 2016. Admission Reason for Admission: Left Sided Numbness, Left Sided Weakness Discharge Discharge Diagnosis / Problem: Transient ischemic attack, Hypertension, Silent migraines Discharge Goals Goal(s): Decrease discomfort, Improve function, Improve disease control Activity Recommendations Activity Limitations: resume your previous activity (as tolerated) . Instructions / Follow-Up Instructions / Follow-Up Discharge home Follow up appointment with your physician Dr. Galindo on Oct 05 @ 1PM Call to schedule a follow up appointment with neurology Dr. Hu in 1 month [address] [facility] [address], [place] [address] If your symptoms reoccur, please seek medical attention Monitor blood pressure and bring blood pressure log to your next appointment with your doctor Follow up a low salt diet and a low cholesterol diet Continue aspirin daily Adding Lisinopril 5 mg daily, your physician will titrate it up if needed Check BMP within 1 week after starting lisinopril to check electrolytes and kidney function Check cholesterol in 3 to 4 months Risk Factors for Stroke: You can reduce your chances of stroke by working with your medical provider to adopt a healthy lifestyle. Some specific ways to lower your chance of stroke are: * If you are a smoker, now is the time to stop smoking cigarettes * If you are diabetic, improve the control of your blood sugars * Avoid excessive amounts of alcohol * Control high blood pressure * Lose weight if you are overweight * Be sure to lead an active lifestyle * Eat a healthy diet low in salt, cholesterol and fat You should know about other risk factors for stroke that you are unable to control. These include: * Age 55 years or older * Male gender * Certain racial groups: , or / * Family History of Stroke, Mini stroke or Heart Attack * Sickle Cell Disease Follow Up: It is important for you to keep your follow up appointments with your medical provider. Current Hospital Diet Patient's current hospital diet: AHA Diet (Heart Healthy) Discharge Diet Recommended Diet: AHA Diet (Heart Healthy) Pending Studies Studies pending at discharge: no Laboratory Results Lipid Panel Test 10/01/16 05:49 Range/Units Triglycerides Level 141 0-150 mg/dl Cholesterol Level 227 H 0-200 mg/dl HDL Cholesterol 57 mg/dl Cholesterol/HDL Ratio 4.0 LDL Cholesterol, Calculated 142 mg/dl Medical Emergencies . Who to Call and When: Medical Emergencies: Call 911 immediately if you experience any of the following warning signs and symptoms of Stroke: * Sudden numbness or weakness of the face, arm or leg, especially on one side of the body * Sudden confusion, trouble speaking or understanding * Sudden trouble seeing in one or both eyes * Sudden trouble walking, dizziness, loss of balance or coordination * Sudden severe headache with no cause Do not delay calling 911 if you experience any warning signs or symptoms of a stroke. Delay in seeking medical attention may affect what treatments can be given to you. . Non-Emergent Contact Non-Emergency issues call your: Primary Care Provider Call Non-Emergent contact if: you have any medication questions . . "Provider Documentation" section prepared by Cheikh Townsend. . Stroke Core Measures Reason no t-PA for Stroke: Treatment not indicated Reason no antithrom by day 2: Treatment not indicated Reason no antithrom at D/C: Treatment not indicated Reason no statin at D/C: Refusal of tx by patient Reason no anticoag w/a fib: Treatment not indicated VTE Core Measure Inpt VTE Proph given/why not?: Enoxaparin (Lovenox)SQ
--- NOTE | 2016-10-02 13:11 | Pharmacy Progress Note ---
Pharmacist Stroke Counseling Date of Service Oct 02, 2016. Scope Pharmacy has been consulted to provide medication discharge counseling for this patient admitted with transient ischemic attack as per the Pharmacist Discharge Counseling for Stroke Patients Protocol. Medications on Discharge New Medications: Aspirin (Aspir-81) 81 Mg Tab 81 MG PO DAILY for 30 Days, #30 TAB Lisinopril (Lisinopril) 5 Mg Tab 1 TAB PO HS for 30 Days Continued Medications: Amlodipine Besylate (Amlodipine Besylate) 10 Mg Tab 10 MG PO DAILY, #30 Cholecalciferol (Vitamin D) 5,000 Unit Tab 48827 UNITS PO DAILY Action The above medications, specifically ones for stroke prophylaxis, have been reviewed in detail with the patient prior to discharge. This includes indication, common adverse reactions, drug interactions, and medication administration. Medication counseling has been employed using the teach-back method to ensure understanding. Outcome I spoke to patient today prior to her discharge to go over her medications with her. She was alert and oriented and showed understanding of what I was talking about. I encouraged her to take her prescribed ASA 81 mg daily to keep her blood thin and prevent future stroke. She said she takes a baby Aspirin chewable at home but not every day. I recommended taking an "enteric coated" aspirin since it is easier on the stomach. She expressed understanding. I also counseled her briefly about Lisinopril which is new for her. I mentioned about the dry cough that some people get as a side effect from it. When I said that we will be making a follow up phone call in 2 to 3 days to make sure she was doing well, she said that it was not necessary and that she would ask her pharmacist at her local pharmacy if she had any questions. Thank you for allowing pharmacy to be involved in the care of this patient. Please call [phone] or [phone] with any additional questions
--- NOTE | 2016-10-05 02:58 | Discharge Summary ---
Discharge Summary Date of Service Oct 05, 2016. Discharge Summary Admission Date: Sep 30, 2016 at 19:56 Discharge Date: Oct 02, 2016 Discharge Disposition: Home Principal Diagnosis: Transient ischemic attack Secondary Diagnoses/Problems: Hypertension Silent migraines Dyslipidemia Procedures: MRI OF THE BRAIN WITHOUT CONTRAST CLINICAL HISTORY: Stroke. Left arm and leg numbness. COMPARISON STUDY: Head CT September 30, 2016. TECHNIQUE: Utilizing a 1.5 [place] magnet and dedicated coil, multiplanar, multiecho imaging of the brain was performed without IV contrast. FINDINGS: There are no areas of restricted diffusion. No acute intracranial hemorrhage, midline shift or mass effect is present. Ventricular system is normal for age. Basilar cisterns are patent. There are no extra-axial collections. Flow-voids for the major intracranial vessels are present. White matter T2 hyperintense foci suggest mild to moderate small vessel disease. T2 hyperintense foci within the bilateral basal ganglia could reflect prominent perivascular spaces or old lacunar infarcts. The right maxilla sinus is opacified. There is slight widening of the right maxillary sinus ostium. The right anterior ethmoid sinuses are opacified. Right frontal sinus is opacified. IMPRESSION: 1. No acute intracranial findings. 2. Right maxillary, anterior ethmoid and frontal sinus opacification. Electronically signed by: Jesus Vee M.D. 10/01/2016 7:14 AM Dictated Date/Time: 10/01/2016 7:11 AM MRA HEAD WITHOUT CONTRAST HISTORY: 76 years-old Female acute strokelike symptoms with left arm and left leg numbness. History of migraines and high blood pressure. COMPARISON: MRI brain and CT head of same day TECHNIQUE: MRA of the head without contrast was obtained utilizing 3-D [id number] sequencing with MIP reformats. FINDINGS: Bilateral internal carotid arteries are patent. There is mild narrowing of the petrous portion right internal carotid artery, likely secondary to atherosclerotic plaquing or tortuosity. No high-grade stenosis, aneurysm or proximal branch occlusion identified. The bilateral M1 and A1 segments are patent. The anterior communicating artery is also within normal limits. The left vertebral artery is dominant. The right vertebral artery is very diminutive in size, likely congenital variation with high-grade stenosis thought to be less likely. The basilar artery is normal and patent. Note is made of origin of the left posterior cerebral artery. Bilateral posterior cerebral arteries are patent. There is a focal area of CSF like signal within the inferior right lentiform nucleus, 7 x 5 mm suggesting remote lacunar infarction or prominent perivascular space. Right maxillary sinus is opacified. Right frontal and ethmoid sinus disease also noted. IMPRESSION: 1. No definite High-grade stenosis, proximal branch occlusion or aneurysm identified. 2. Diminutive size of the right vertebral artery is likely secondary to congenital variation with dominant left vertebral artery. 3. Prominent perivascular space or remote lacunar infarction of the right lentiform nucleus. The above report was generated using voice recognition software. It may contain grammatical, syntax or spelling errors. Electronically signed by: Jcarlos Elliott M.D. 10/01/2016 7:45 AM Dictated Date/Time: 10/01/2016 7:[address] SCAN OF THE BRAIN WITHOUT IV CONTRAST CLINICAL HISTORY: Left-sided numbness. COMPARISON STUDY: CT of the brain dated 07/28/2014. TECHNIQUE: Unenhanced axial CT scan of the brain is performed from the vertex to the skull base. CT DOSE: 687.98 mGy.cm FINDINGS: Brain parenchyma: There are age-related involutional changes noting mild patchy subcortical and periventricular microangiopathic change. There is no hemorrhage, mass effect, or evidence of acute territorial ischemia by CT criteria. A chronic lacunar infarct versus perivascular space is again seen in the right basal ganglion. Santos-white matter is preserved. No extra-axial fluid collection is seen. Ventricles, sulci, cisterns: Prominent secondary to involutional change. Intracranial vasculature: There is atherosclerotic calcification of the cavernous carotid and vertebral arteries. Calvarium: Unremarkable. Sinuses and mastoids: There is complete opacification of the right maxillary antrum. Thickening and sclerosis of the sinus wall indicate chronicity. There is complete opacification of the anterior right ethmoid sinuses, as well as subtotal opacification of the right frontal sinus. The mastoid air cells are well pneumatized. Orbits: The bony orbits are grossly intact. There are bilateral ocular lens implants. IMPRESSION: 1. There is no hemorrhage, mass effect, or evidence of acute territorial ischemia by CT criteria. 2. Chronic appearing paranasal sinus disease as above. Electronically signed by: Remy Urias M.D. 09/30/2016 6:38 PM Dictated Date/Time: 09/30/2016 6:36 PM CHEST 2 VIEWS ROUTINE CLINICAL HISTORY: 76 years-old Female presenting with abn pcxr. TECHNIQUE: PA and lateral views of the chest were obtained. COMPARISON: 09/30/2016 5:12 PM. FINDINGS: Atherosclerosis of aortic arch. Cardiac silhouette top normal in size. Hyperinflation. Previously noted nodular opacity at the right lung apex is compatible with a nipple shadow after placement of nipple markers. No focal infiltrate. No pleural effusion or pneumothorax. Degenerative changes of the right glenohumeral joint. Upper abdomen normal. IMPRESSION: 1. The previous seen noted nodular opacity at the right lung apex is consistent with a nipple shadow. 2. Hyperinflation may suggest emphysema. No focal infiltrate. Electronically signed by: Mumtaz Coley M.D. 10/01/2016 8:08 AM Dictated Date/Time: 10/01/2016 8:06 AM SINGLE VIEW CHEST CLINICAL HISTORY: Strokelike symptoms. FINDINGS: An AP, portable, upright chest radiograph is compared to study dated 07/28/2014. The examination is degraded by portable technique and patient rotation. The heart is mildly enlarged. The pulmonary vascular is noncongested. The lungs appear hyperinflated. Emphysema is suggested and chronic interstitial thickening is similar to previous. No airspace consolidation, pleural effusion, or pneumothorax is seen. A 1.3 cm nodular density projects over the right lung base. The skeletal structures are osteopenic. The bony thorax is grossly intact. IMPRESSION: 1. Cardiomegaly and suspect emphysema. No acute cardiopulmonary abnormality is identified. 2. A 1.3 cm nodular density projects over the right lung base. This could represent artifact, a pulmonary nodule, or nipple shadow. Follow-up with a dedicated PA and lateral examination with nipple markers is recommended when the patient is clinically able. Electronically signed by: Remy Urias M.D. 09/30/2016 5:29 PM Dictated Date/Time: 09/30/2016 5:26 PM Consultations: Neuro Medication Reconciliation New Medications: Aspirin (Aspir-81) 81 Mg Tab 81 MG PO DAILY for 30 Days, #30 TAB Lisinopril (Lisinopril) 5 Mg Tab 1 TAB PO HS for 30 Days Continued Medications: Amlodipine Besylate (Amlodipine Besylate) 10 Mg Tab 10 MG PO DAILY, #30 Cholecalciferol (Vitamin D) 5,000 Unit Tab 55087 UNITS PO DAILY Admission Information HPI (per Admitting provider): CHIEF COMPLAINT: Numbness, left arm and left leg. HISTORY OF PRESENT ILLNESS: History obtained from the patient and records. Medical history significant for migraine, hypertension. Recent confinement last July 2014 for hypertensive urgency. Patient discharged on amlodipine. Patient has had "silent migraine" symptoms for about 20 years. Aura, but no headache symptoms occurring 3-4 times a year, lasting about 20 minutes. About 2 days ago, she had an attack of silent migraine one after the other, unusual, transient left upper extremity and lower extremity numbness. She also noted blood pressure higher than usual, systolic blood pressure 200s. Patient admits to titration of home Norvasc dose based on her blood pressure. She took the full 10 mg of her prescribed Norvasc yesterday and today. Px took ASA at home in the last 2 days. Px brought to the Emergency Room. Left-sided numbness resolved upon arrival at the emergency room. Systolic blood pressure upon arrival at the ER was normal 190s. Patient given Labetalol. Physical Exam (per Admitting): VITAL SIGNS: Blood pressure was noted to be 189/80, pulse rate noted to be 85, RR 18, T 37 O2 sats 98 on room. GENERAL: Noted to be pleasant, no respiratory distress, looks younger than stated age. SKIN: Normal color. HEENT: [place] palpebral conjunctivae. Dry mucosa. NECK: No JVD. Supple. CHEST: Clear to auscultation. HEART: Regular rate and rhythm. ABDOMEN: Soft. NT EXTREMITIES: No edema. No tenderness NEUROLOGIC: No gross focality. Hospital Course Stroke like symptoms Present with transient left upper extremity and lower extremity numbness with elevated BP Possible related to silent migraine VS TIA All Stroke work up negative for MRI of head, MRA of Head and CT head Continue aspirin No statin added because pt refused Statin benefits discussed with patient PT/OT Neurology consult Case discussed with Dr. Hu and OK to be discharged home today Follow up with neurology Dr. Hu in 1 month Dyslipidemia Chol 227, LDL 142, HDL 57 Not on statin refused to take statin for now she wants to try lifestyles modification and if fails, she will do the statin HTN BP was elevated on admission possible situational Pt said that she sometimes takes amlodipine 10 mg if BP high and 5 mg if BP in the low side BP was good this morning and started to elevate Lisinopril 2.5 mg was added last night, will continue lisinopril 2.5 mg Her PCP will titrate it up if needed Advised pt to continue amlodipine 10 mg She is going to continue monitoring BP in the next few days and bring her BP log to her next appointment with her PCP Follow a low salt diet 10/02 Discharge was cancelled last night due to elevated BP above the 200's Elevated BP mostly related to anxiety because the more we checked BP and the more she became anxious and BP started to get higher After given Ativan 0.5 mg last night her BP improved Continue in amlodipine 10mg daily Will increase lisinopril to 5 mg HS Check BPM within 1 week Continue monitor BP Advised pt to check her BP daily but no more than 2 times a day because of the anxiety Follow up appointment with Dr. Galindo on 10/05/16 @ 1 PM Migraine Silent Has been worsening lately Not on any med. Neuro consulted DVT px On Lovenox CODE STATUS FULL CODE Disposition Will discharge home today Follow up appointment with your PCP Dr. Galindo on 10/05/16 @ 1 PM Total time spent on discharge = 35 minutes This includes examination of the patient, discharge planning, medication reconciliation, and communication with other providers. Discharge Instructions Discharge Instructions Date of Service Oct 02, 2016. Admission Reason for Admission: Left Sided Numbness, Left Sided Weakness Discharge Discharge Diagnosis / Problem: Transient ischemic attack, Hypertension, Silent migraines Discharge Goals Goal(s): Decrease discomfort, Improve function, Improve disease control Activity Recommendations Activity Limitations: resume your previous activity (as tolerated) . Instructions / Follow-Up Instructions / Follow-Up Discharge home Follow up appointment with your physician Dr. Galindo on Oct 05 @ 1PM Call to schedule a follow up appointment with neurology Dr. Hu in 1 month [address], [place] [address] If your symptoms reoccur, please seek medical attention Monitor blood pressure and bring blood pressure log to your next appointment with your doctor Follow up a low salt diet and a low cholesterol diet Continue aspirin daily Adding Lisinopril 5 mg daily, your physician will titrate it up if needed Check BMP within 1 week after starting lisinopril to check electrolytes and kidney function Check cholesterol in 3 to 4 months Risk Factors for Stroke: You can reduce your chances of stroke by working with your medical provider to adopt a healthy lifestyle. Some specific ways to lower your chance of stroke are: * If you are a smoker, now is the time to stop smoking cigarettes * If you are diabetic, improve the control of your blood sugars * Avoid excessive amounts of alcohol * Control high blood pressure * Lose weight if you are overweight * Be sure to lead an active lifestyle * Eat a healthy diet low in salt, cholesterol and fat You should know about other risk factors for stroke that you are unable to control. These include: * Age 55 years or older * Male gender * Certain racial groups: , or / * Family History of Stroke, Mini stroke or Heart Attack * Sickle Cell Disease Follow Up: It is important for you to keep your follow up appointments with your medical provider. Current Hospital Diet Patient's current hospital diet: AHA Diet (Heart Healthy) Discharge Diet Recommended Diet: AHA Diet (Heart Healthy) Pending Studies Studies pending at discharge: no Laboratory Results Lipid Panel Test 10/01/16 05:49 Range/Units Triglycerides Level 141 0-150 mg/dl Cholesterol Level 227 H 0-200 mg/dl HDL Cholesterol 57 mg/dl Cholesterol/HDL Ratio 4.0 LDL Cholesterol, Calculated 142 mg/dl Medical Emergencies . Who to Call and When: Medical Emergencies: Call 911 immediately if you experience any of the following warning signs and symptoms of Stroke: * Sudden numbness or weakness of the face, arm or leg, especially on one side of the body * Sudden confusion, trouble speaking or understanding * Sudden trouble seeing in one or both eyes * Sudden trouble walking, dizziness, loss of balance or coordination * Sudden severe headache with no cause Do not delay calling 911 if you experience any warning signs or symptoms of a stroke. Delay in seeking medical attention may affect what treatments can be given to you. . Non-Emergent Contact Non-Emergency issues call your: Primary Care Provider Call Non-Emergent contact if: you have any medication questions . . "Provider Documentation" section prepared by Cheikh Townsend. . Stroke Core Measures Reason no t-PA for Stroke: Treatment not indicated Reason no antithrom by day 2: Treatment not indicated Reason no antithrom at D/C: Treatment not indicated Reason no statin at D/C: Refusal of tx by patient Reason no anticoag w/a fib: Treatment not indicated VTE Core Measure Inpt VTE Proph given/why not?: Enoxaparin (Lovenox)SQ Additional Copies To Renato Galindo M.D.
== END 2016-10-02 14:12 | disposition home or self-care (01) ==
LOC: C.EDB 15:35 → C.MED 19:56 → ENRESERV 20:08 → C.MED 10-01 05:46
PROVIDERS: ADMIT Internal Medicine; ATTEND Internal Medicine
DX: G45.9 Transient cerebral ischemic attack, unspecified (principal); I10 Essential (primary) hypertension; G43.909 Migraine, unspecified, not intractable, without status migrainosus; E78.5 Hyperlipidemia, unspecified

== ENCOUNTER 2022-01-14 16:26 | Inpatient (IN) ==
--- NOTE | 2022-01-14 16:22 | Emergency Department Note ---
Impression & Plan Fall, HTN (hypertension), Acute electrocardiogram changes, Elevated troponin I level ED Provider Note Provider: Zacarias Davila MD DATE OF SERVICE: 01/14/2022 CHIEF COMPLAINT: Balance issues, indigestion HISTORY OF PRESENT ILLNESS: Patient is a 81-year-old female history of hypertension and hyperlipidemia presenting here today via ambulance. Was called prior to arrival EMS. Patient evidently was at the [facility] became unbalanced fell and then developed indigestion. EMS completed an EKG was concerning for anterior STEMI. Was given aspirin as well as nitroglycerin and found to be sign ificantly hypertensive prior to arrival.. Patient states she believes she tripped and fell but did not strike her head or lose consciousness at the [facility]. Denies any pain complaints upon arrival or indigestion. Denies shortness of breath. Denies nausea or vomiting. Patient denies any cardiac history. States she get some whitecoat hypertension. Denies headache currently. Denies any significant injury in her extremities. REVIEW OF SYSTEMS: A total of 10 review of systems was obtained and negative except as stated above in the HPI. PAST MEDICAL HISTORY: As noted above MEDICATIONS: Reviewed home medication list SOCIAL HISTORY: Retired nurse non-smoker PHYSICAL EXAM: GENERAL: alert and oriented in no acute distress on stretcher Head: normocephalic and atraumatic EYES: No injection, discharge or icterus. PERRL, EOMI. NECK: Trachea midline. Supple. ENT: Mucous membranes pink and moist. Pharynx without erythema or exudate. LUNGS: Airway patent. No retractions. Breath sounds clear with good air entry bilaterally. HEART: Regular rate and rhythm. No chest wall tenderness ABDOMEN: Soft and non-tender, without guarding or rebound. BACK: No midline tenderness, No bilateral flank tenderness. SKIN: Acyanotic, warm, dry, without rashes EXTREMITIES: Without swelling, tenderness or deformity NEUROLOGICAL: No focal deficits. No aphasia. No facial droop or slurred speech. Normal strength and tone in the extremities. Sensation to gross touch normal. EKG: There is an 130 bpm sinus tachycardia with occasional PVC. V1 V2 elevation with V5 V6 and lead II ST depression. QTc 391. CONTINUOUS CARDIAC MONITORING: was ordered and showed a heart rate of 90s-130s bpm in normal sinus rhythm to sinus tachycardia GCS 15. Patient's laboratory studies and imaging reviewed. Differential includes Cardiac ischemia, aortic dissection, pulmonary embolism, pneumothorax, pneumonia, pericarditis, myocarditis, esophageal rupture, GERD, cholecystitis, pancreatitis, musculoskeletal, as well as other pathologies. IMPRESSION/MEDICAL DECISION MAKING: Prehospital EKG concerning for STEMI with V1 and V2 elevations with V6 and lead II depressions. Made a heart alert. Aspirin prior to arrival. Unbalanced issues with indigestion reported. Immediate EKG obtained. Cardiology evaluated bedside. Patient without significant symptoms at this point. Did receive nitroglycerin x2 prior to arrival for indigestion. Given some labetalol for hypertension. No cardiac history. CBC and chemistries reassuring but there is evidence of troponin elevation. Patient again without significant chest discomfort and a second EKG is improving with blood pressure control with less ST segment elevation in V1 to V2. Patient will be heparinized. Patient is without symptoms discussed with manpower development advisor and they will monitor overnight and probably proceed with cardiac catheterization tomorrow most the patient developed symptoms. Troponin mildly elevated. Will be admitted the hospital and she was agreeable with this plan at this time. Patient denies again striking her head or any significant pain at this time. Do NOT feel any additional imaging in regards to a trauma perspective. DIAGNOSIS: Fall, EKG changes, hypertension, elevated troponin DISPOSITION: Hospitalist will evaluate Patient was agreeable with this plan. Critical Care I have personally spent 31 minutes of critical care time in the direct management of this patient. This includes bedside care, interpretation of diagnostic studies, and testing, discussion with consultants, patient, and family members, and other required patient management activities. These 31 minutes is in excess of all separately billable procedures. Past Med/Surg History Medical History Abnormal EKG Allergic rhinitis Hypercholesterolemia Hypertension Hypertensive urgency Left sided numbness Left-sided weakness Lyme disease Lyme disease Migraine Weakness Surgical History History of cataract surgery History of dental surgery Family History Mother Hypertension Sister Hypertension Cancer Ovarian Ovarian cancer Grandmother Breast cancer Father No problems noted. Denies family history of Colon cancer Prostate cancer Myocardial infarction Social History Smoking Status: Never smoker Second Hand Exposure: Yes; Hx Alcohol Use: No Hx Substance Use: No Preferred Language: Welsh Visual Impairment: No Limitations Hearing Ability: Hard of Hearing Signal Repairer Required: No Beliefs That Will Affect Care: None marital status: Current Living Situation: Family Current Living Situation Comment: Lives with her Son current occupational status: retired How many Children do You have: 8 Other Information That Helps Us Care for You: No Feels Safe at Home: Yes Safety Concerns: Feels Safe At This Time Childhood Exposure to Second-Hand Smoke: No caffeine: Yes during the past year weight has: remained stable Dental Care, Regularly: Yes Physical Activity Frequency: Daily Seatbelt Use: always Sunscreen Use: Yes Assistive Devices: Glasses Allergies Allergies Allergy/AdvReac Type Severity Reaction Status Date / Time Lisinopril TABS Allergy Unknown Uncoded 01/14/22 17:29 Home Meds Home Medications Medication Instructions Recorded Confirmed cholecalciferol (vitamin D3) 125 10,000 units PO DAILY 08/04/18 01/14/22 mcg (5,000 unit) capsule multivitamin 1 tab PO 3XWK 08/04/18 01/14/22 Previous Rx's Medication Instructions Recorded metoprolol succinate 25 mg 25 mg PO DAILY #90 tabs 06/23/21 tablet,extended release 24 hr Results & Data (ED) Vital Signs Vital Signs - 24 hr 01/14/22 16:34 01/14/22 16:30 01/14/22 16:30 Temperature 36.9 C Temperature Source Oral Pulse Rate 122 H Pulse Rate [Apical] 122 H Pulse Rate from SpO2 Sensor Respiratory Rate 20 20 Respiratory Effort / Characteristics Non-Labored Spontaneous Non-Labored Spontaneous Respiratory Depth Normal Normal Respiratory Pattern Regular Regular Blood Pressure 184/118 H Blood Pressure [Right Arm] 184/118 H Blood Pressure Mean 140 Blood Pressure Mean [Right Arm] 140 Pulse Oximetry 95 94 93 Oxygen Delivery Method Room Air Room Air Room Air Sepsis Recent Fever Within 48 Hours No Sepsis New/Unexplained Change in Mental Status No Sepsis Action Taken by Nursing No Action Required 01/14/22 16:30 01/14/22 16:32 01/14/22 16:33 Temperature Temperature Source Pulse Rate 122 H 124 H Pulse Rate [Apical] Pulse Rate from SpO2 Sensor 125 H Respiratory Rate 20 14 Respiratory Effort / Characteristics Respiratory Depth Respiratory Pattern Blood Pressure 184/118 H Blood Pressure [Right Arm] Blood Pressure Mean 140 Blood Pressure Mean [Right Arm] Pulse Oximetry 95 96 Oxygen Delivery Method Room Air Sepsis Recent Fever Within 48 Hours Sepsis New/Unexplained Change in Mental Status Sepsis Action Taken by Nursing 01/14/22 16:33 01/14/22 16:35 01/14/22 16:37 Temperature Temperature Source Pulse Rate 118 H 117 H Pulse Rate [Apical] Pulse Rate from SpO2 Sensor 119 H 117 H Respiratory Rate 21 19 Respiratory Effort / Characteristics Respiratory Depth Respiratory Pattern Blood Pressure 207/155 H Blood Pressure [Right Arm] Blood Pressure Mean 172 Blood Pressure Mean [Right Arm] Pulse Oximetry 96 95 Oxygen Delivery Method Sepsis Recent Fever Within 48 Hours Sepsis New/Unexplained Change in Mental Status Sepsis Action Taken by Nursing 01/14/22 16:37 01/14/22 16:40 01/14/22 16:40 Temperature Temperature Source Pulse Rate 110 H Pulse Rate [Apical] Pulse Rate from SpO2 Sensor 118 H 108 H Respiratory Rate 20 Respiratory Effort / Characteristics Respiratory Depth Respiratory Pattern Blood Pressure 177/99 H Blood Pressure [Right Arm] Blood Pressure Mean 125 Blood Pressure Mean [Right Arm] Pulse Oximetry 95 95 Oxygen Delivery Method Sepsis Recent Fever Within 48 Hours Sepsis New/Unexplained Change in Mental Status Sepsis Action Taken by Nursing 01/14/22 16:42 01/14/22 16:42 01/14/22 16:45 Temperature Temperature Source Pulse Rate 100 H Pulse Rate [Apical] Pulse Rate from SpO2 Sensor 100 H Respiratory Rate 21 Respiratory Effort / Characteristics Respiratory Depth Respiratory Pattern Blood Pressure 156/97 H 160/101 H Blood Pressure [Right Arm] Blood Pressure Mean 116 120 Blood Pressure Mean [Right Arm] Pulse Oximetry 94 Oxygen Delivery Method Sepsis Recent Fever Within 48 Hours Sepsis New/Unexplained Change in Mental Status Sepsis Action Taken by Nursing 01/14/22 16:45 01/14/22 17:06 Temperature Temperature Source Pulse Rate 94 H Pulse Rate [Apical] 100 H Pulse Rate from SpO2 Sensor 93 H Respiratory Rate 26 H 20 Respiratory Effort / Characteristics Respiratory Depth Respiratory Pattern Blood Pressure Blood Pressure [Right Arm] 174/101 H Blood Pressure Mean Blood Pressure Mean [Right Arm] 125 Pulse Oximetry 93 96 Oxygen Delivery Method Room Air Sepsis Recent Fever Within 48 Hours Sepsis New/Unexplained Change in Mental Status Sepsis Action Taken by Nursing Laboratory Data Result diagrams: 01/14/22 16:30 01/14/22 16:30 Lab Results 12/06/0201/14/22 01/14/22 Range/Units 16:30 16:30 16:30 WBC 6.91 (4.8-10.8) K/ul RBC 4.85 (3.93-5.22) M/uL Hgb 14.8 (12.0-16.0) g/dl Hct 44.5 (34.1-44.9) % MCV 91.8 (80.0-100.0) fL MCH 30.5 (25.0-34.0) pg MCHC 33.3 (32.0-36.0) g/dL RDW Std Deviation 45.7 (36.4-46.3) fL RDW Coeff of Michelle 13.4 (11.5-14.5) % Plt Count 224 (130-400) K/uL MPV 10.1 (9.4-12.3) fL Immature Gran % (Auto) 0.3 % Neut % (Auto) 64.6 % Lymph % (Auto) 26.3 % Erie % (Auto) 8.1 % Eos % (Auto) 0.4 % Baso % (Auto) 0.3 % Neut # (Auto) 4.46 (1.4-6.5) K/uL Lymph # (Auto) 1.82 (1.2-3.4) K/uL Erie # (Auto) 0.56 (0.24-0.82) K/uL Eos # (Auto) 0.03 (0-0.50) K/uL Baso # (Auto) 0.02 (0-0.2) K/uL Immature Gran # (Auto) 0.02 (0.00-0.02) K/uL PT 10.9 (9.0-12.0) Seconds INR 1.0 (0.9-1.1) APTT 25.1 (21.0-31.0) Seconds PTT Ratio 0.9 Sodium 138 (136-145) mmol/L Potassium 4.0 (3.5-5.1) mmol/L Chloride 101 (98-107) mmol/L Carbon Dioxide 30 (21-32) mmol/L Anion Gap 7 (3-11) BUN 22 (6-23) mg/dl Creatinine 0.83 (0.6-1.2) mg/dl Est Cr Clr Drug Dosing 44.1 ml/min Est GFR ( Amer) 75.6 ml/min Est GFR (Non-Af Amer) 65.2 ml/min BUN/Creatinine Ratio 26.5 H (10-20) Glucose 122 H (70-99(Fasting)) mg/dl Calcium 9.3 (8.5-10.1) mg/dl Magnesium 2.0 (1.7-2.4) mg/dl Total Bilirubin 0.9 (0.2-1.0) mg/dl AST 20 (13-39) U/L ALT 14 (7-52) U/L Alkaline Phosphatase 52 (34-104) U/L Total Creatine Kinase 80 (26-192) U/L Troponin I High Sens 537.8 H* (0-14) pg/ml B-Natriuretic Peptide (0-100) pg/ml Total Protein 6.9 (6.0-8.3) gm/dl Albumin 4.2 (3.4-5.0) gm/dl Globulin 2.7 (2.5-4.0) gm/dl Albumin/Globulin Ratio 1.6 (0.9-2) Triglycerides (0-150) mg/dl Cholesterol (0-200) mg/dl LDL Cholesterol, Calc mg/dl VLDL Cholesterol, Calc (0-30) mg/dl HDL Cholesterol mg/dl Cholesterol/HDL Ratio (0-5) Lipase 25 (11-82) U/L TSH (0.300-4.500) uIu/ml SARS-CoV-2, RNA, NAAT (NEGATIVE) 01/14/22 01/14/22 01/14/22 Range/Units 16:30 16:46 16:54 WBC (4.8-10.8) K/ul RBC (3.93-5.22) M/uL Hgb (12.0-16.0) g/dl Hct (34.1-44.9) % MCV (80.0-100.0) fL MCH (25.0-34.0) pg MCHC (32.0-36.0) g/dL RDW Std Deviation (36.4-46.3) fL RDW Coeff of Michelle (11.5-14.5) % Plt Count (130-400) K/uL MPV (9.4-12.3) fL Immature Gran % (Auto) % Neut % (Auto) % Lymph % (Auto) % Erie % (Auto) % Eos % (Auto) % Baso % (Auto) % Neut # (Auto) (1.4-6.5) K/uL Lymph # (Auto) (1.2-3.4) K/uL Erie # (Auto) (0.24-0.82) K/uL Eos # (Auto) (0-0.50) K/uL Baso # (Auto) (0-0.2) K/uL Immature Gran # (Auto) (0.00-0.02) K/uL PT (9.0-12.0) Seconds INR (0.9-1.1) APTT (21.0-31.0) Seconds PTT Ratio Sodium (136-145) mmol/L Potassium (3.5-5.1) mmol/L Chloride (98-107) mmol/L Carbon Dioxide (21-32) mmol/L Anion Gap (3-11) BUN (6-23) mg/dl Creatinine (0.6-1.2) mg/dl Est Cr Clr Drug Dosing ml/min Est GFR ( Amer) ml/min Est GFR (Non-Af Amer) ml/min BUN/Creatinine Ratio (10-20) Glucose (70-99(Fasting)) mg/dl Calcium (8.5-10.1) mg/dl Magnesium (1.7-2.4) mg/dl Total Bilirubin (0.2-1.0) mg/dl AST (13-39) U/L ALT (7-52) U/L Alkaline Phosphatase (34-104) U/L Total Creatine Kinase (26-192) U/L Troponin I High Sens (0-14) pg/ml B-Natriuretic Peptide 761 H (0-100) pg/ml Total Protein (6.0-8.3) gm/dl Albumin (3.4-5.0) gm/dl Globulin (2.5-4.0) gm/dl Albumin/Globulin Ratio (0.9-2) Triglycerides 164 H (0-150) mg/dl Cholesterol 247 H (0-200) mg/dl LDL Cholesterol, Calc 144 mg/dl VLDL Cholesterol, Calc 33 H (0-30) mg/dl HDL Cholesterol 70 mg/dl Cholesterol/HDL Ratio 3.5 (0-5) Lipase (11-82) U/L TSH 1.884 (0.300-4.500) uIu/ml SARS-CoV-2, RNA, NAAT (NEGATIVE) 01/14/22 Range/Units 16:58 WBC (4.8-10.8) K/ul RBC (3.93-5.22) M/uL Hgb (12.0-16.0) g/dl Hct (34.1-44.9) % MCV (80.0-100.0) fL MCH (25.0-34.0) pg MCHC (32.0-36.0) g/dL RDW Std Deviation (36.4-46.3) fL RDW Coeff of Michelle (11.5-14.5) % Plt Count (130-400) K/uL MPV (9.4-12.3) fL Immature Gran % (Auto) % Neut % (Auto) % Lymph % (Auto) % [place]rie % (Auto) % Eos % (Auto) % Baso % (Auto) % Neut # (Auto) (1.4-6.5) K/uL Lymph # (Auto) (1.2-3.4) K/uL Erie # (Auto) (0.24-0.82) K/uL Eos # (Auto) (0-0.50) K/uL Baso # (Auto) (0-0.2) K/uL Immature Gran # (Auto) (0.00-0.02) K/uL PT (9.0-12.0) Seconds INR (0.9-1.1) APTT (21.0-31.0) Seconds PTT Ratio Sodium (136-145) mmol/L Potassium (3.5-5.1) mmol/L Chloride (98-107) mmol/L Carbon Dioxide (21-32) mmol/L Anion Gap (3-11) BUN (6-23) mg/dl Creatinine (0.6-1.2) mg/dl Est Cr Clr Drug Dosing ml/min Est GFR ( Amer) ml/min Est GFR (Non-Af Amer) ml/min BUN/Creatinine Ratio (10-20) Glucose (70-99(Fasting)) mg/dl Calcium (8.5-10.1) mg/dl Magnesium (1.7-2.4) mg/dl Total Bilirubin (0.2-1.0) mg/dl AST (13-39) U/L ALT (7-52) U/L Alkaline Phosphatase (34-104) U/L Total Creatine Kinase (26-192) U/L Troponin I High Sens (0-14) pg/ml B-Natriuretic Peptide (0-100) pg/ml Total Protein (6.0-8.3) gm/dl Albumin (3.4-5.0) gm/dl Globulin (2.5-4.0) gm/dl Albumin/Globulin Ratio (0.9-2) Triglycerides (0-150) mg/dl Cholesterol (0-200) mg/dl LDL Cholesterol, Calc mg/dl VLDL Cholesterol, Calc (0-30) mg/dl HDL Cholesterol mg/dl Cholesterol/HDL Ratio (0-5) Lipase (11-82) U/L TSH (0.300-4.500) uIu/ml SARS-CoV-2, RNA, NAAT NEGATIVE (NEGATIVE) Administered Medications Heparin Sodium/Dextrose (Heparin Sodium/Dextrose) 25,000 units in 500 mls @ 13 mls/hr IV .Q24H LILLIAN; Protocol Stop: 02/13/22 17:14 Last Admin: 01/14/22 17:02 Dose: 650 units/hr, 13 mls/hr Documented By: SHEILA Co-signed By: FABY Nitroglycerin (Nitroglycerin 2% Ointment 30gm Tube) 0.5 inch EXT Q6H LILLIAN Stop: 02/13/22 17:44 Last Admin: 01/14/22 23:15 Dose: 0.5 inch Documented By: Admin: 01/14/22 19:29 Dose: 0.5 inch Documented By: CAROL Discontinued Medications Heparin Sodium (Porcine) (Heparin Sod (Porcine) 1000 Unit/Ml) 1 units IV NOW ONE Stop: 01/14/22 17:09 Last Admin: 01/14/22 19:59 Dose: Not Given Documented By: CAROL Heparin Sodium/Sodium Chloride (Heparin In Nss Infusion 1000 Unit/500 Ml (2 U/Ml) Bag) Confirm Administered Dose 3,000 units IV .STK-MED ONE Stop: 01/14/22 16:33 Last Admin: 01/14/22 17:04 Dose: 3,000 units Documented By: SHIELA Labetalol HCl (Labetalol Hcl Iv 5 Mg/Ml 20ml) 10 mg IV NOW STA Stop: 01/14/22 16:35 Last Admin: 01/14/22 16:47 Dose: 10 mg Documented By: FABY Co-signed By: SHEILA Labetalol HCl (Labetalol Hcl Iv 5 Mg/Ml 20ml) Confirm Administered Dose 10 mg IV .STK-MED ONE Stop: 01/14/22 16:37 Last Admin: 01/14/22 16:47 Dose: Not Given Documented By: FABY Imaging Data Radiologist's Impression: Chest X-Ray 01/14/22 16:44 XR chest 1V portable HISTORY: fall COMPARISON: Chest 09/30/2016. FINDINGS: No pneumothorax. No pleural effusions. Left basilar linear densities favor subsegmental atelectasis or scarring. Otherwise, the lungs are clear. The heart remains top normal in size. IMPRESSION: No acute process. ACT 112: Negative or not required by law. Electronically signed by: Jarvis Arrieta M.D. 01/14/2022 5:33 PM Discharge Plan Visit Data Chief Complaint: Heart Alert Stated Complaint: HEART ALERT ED Provider: Zacarias Davila Discharge Problem: Fall, HTN (hypertension), Acute electrocardiogram changes, Elevated troponin I level Patient Disposition: Admitted As Inpatient Discharge Instructions Interventions: ED Discharge Assessment Last Done: 01/14/22 18:13
[2022-01-14] MEDS ORDERED: fentaNYL citrate 100 MCG/2 ML VIAL ONE (16:32)
[2022-01-14] MEDS ORDERED: MIDAZOLAM HCL 1 MG/ML 2ML VIAL ONE (16:32)
[2022-01-14] MEDS ORDERED: niCARdipine HCL INJ 2.5 MG/ML 10 ML AMP ONE (16:32)
[2022-01-14] MEDS ORDERED: NITROGLYCERIN/D5W 100MCG/ML 20ML SYR ONE (16:33)
[2022-01-14] MEDS ORDERED: LABETALOL HCL IV 5 MG/ML 20ML IV STA (16:34)
[2022-01-14] MEDS ORDERED: LABETALOL HCL IV 5 MG/ML 20ML IV ONE (16:36)
[2022-01-14] MEDS ORDERED: Heparin IV Adult Wt-Based Low-Dose WITH Bolus Protocol STA (16:50)
--- NOTE | 2022-01-14 16:56 | History & Physical Report ---
Date of Service January 14, 2022 Assessment & Plan (1) ACS (acute coronary syndrome): Plan: -Admit to the PCU -Patient is currently afebrile, hypertensive at 174/101, and stable on RA -Patient was noted to be hypertensive on EMS arrival with systolics in the 220's and ECG changes concerning for possible anterior STEMI -Heart Alert was called and she was evaluated by Cardiology at bedside, their recommends as below: (1) Hypertension: -Blood pressure was very elevated. Improving with beta-carito. Resume metoprolol succinate ER 25 mg initial dose. We will titrate up the dose as tolerated by her heart rate. She should also receive her amlodipine 10 mg daily. Use nitroglycerin for any chest pain. (2) Hypercholesterolemia: -To our knowledge she is no more than intermediate risk. We should check a fasting lipid panel. Further recommendations pending results of blood work, echo, and cath. (3) Abnormal EKG: -Patient has no chest discomfort and no epigastric discomfort. It appears that the EKG changes which were more dynamic are secondary to her hypertensive urgency. However, she has significant Q waves anteriorly and inferiorly. I suspect she has multivessel coronary artery disease. Tentatively plan for cardiac catheterization tomorrow. If she has any recurrent symptoms, worsening EKG changes, then we will do her emergently tonight. I would place her on aspirin and heparin drip. Avoid Plavix or Brilinta since she may have multivessel disease requiring bypass grafting. Follow her troponin. If it is positive I would add a statin (atorvastatin 40 mg daily). We will get an echocardiogram in the morning. She will be placed on the Plant Control Operator list for possible add on. -Continue heparin drip, patient received 324 PO aspirin in route to ED, will con tinue tomorrow -Will add 0.5 inch of Nitro paste q6h to assist with BP management and anginal symptoms -Will continue home metoprolol, patient is no longer taking Amlodipine -Will also add prn IV labetalol for systolic BP > 160 mmHg -Initial high sensitivity trop elevated at 537, will discuss starting a statin with the patient -Will repeat next trop in 2 hours then q6h overnight, monitor on tele -If any concerning symptoms, uncontrolled BP, or concerning troponin elevations/ECG changes would reach out to Cardiology immediately to consider emergent heart cath -Will keep NPO except meds for now as there is concern she may need heart cath overnight with her first troponin significantly elevated -AM CBC and BMP (2) Hypercholesterolemia: Plan: -Patient is not on a statin as she has been concerned about side effects in the past -Spoke to her regarding starting a statin tonight as per Cardiology's recommendations, she expressed that she understood the risks of not starting one tonight. She would like to wait until after the heart cath to see if it is absolutely necessary that she needs to start statin therapy -Follow up on AM lipid panel and continue discussions regarding statin therapy during her admission (3) Hypertension: Plan: -Noted to be hypertensive on arrival with systolics in the 220's -S/P 10 mg IV labetalol -Patient normally on metoprolol outpatient -Will continue metoprolol, added 0.5 inches of nitro paste for better BP management and anginal symptoms, also adding prn IV labetalol for systolic BP > 160 Plan The patient was discussed with Dr. Hardin at the time of the admission History of Present Illness Chief Complaint: Heart Alert Primary Care Provider: WESLEY Villegas Carol is an 81 year old female with a PMH significant for HTN, hyperlipidemia, migraines, arthritis who presented to the [facility] ED on 01/14/22 via EMS as a heart alert. Per EMS, the patient was at [facility] and had a mechanical fall. After she was noted to have indigestion and EMS was found. The patient was found to be hypertensive with initial systolic BP in the 220's, ECG was concerning for ST segment changes in the anterior leads. The patient was given full dose aspirin and a dose of Nitroglycerine by EMS in transit to the hospital. In the ED the patient was found to be afebrile, hypertensive at 184/118, and stable on RA. Cardiology evaluated the patient and discussed the possibility of emergent heart cath, she elected to start with a Heparin drip and wait to go to the cath room until tomorrow. In the ED the patient was given 10 mg IV labetalol and her BP improved to 160/101. She was started on a heaprin drip prior to admission. At the time of the exam the patient was resting comfortably in bed in no acute distress with her son sitting bedside. The patient states that she has been in her normal state of health and was in line at [facility] waiting to buy some books. She took a few steps to move up in line and stumbled, causing her to fall on the ground. She states that she first landed on her buttocks then gently on her back. She denies hitting her head, losing consciousness, and pain of any kind at the time of my exam. She noted some indigestion while in the ambulance but this subsided when she belched. She denies a previous history of cardiac issues and states that she is only on metoprolol at home. When asked if she was ever on a statin she states that she was offered one prior by her PCP but she declined due to adverse effects experienced by friends who were on statins. I explained to her that we will get fasting lipids in the morning, if elevated we would highly recommend starting one to prevent strokes and future heart attacks. I spoke to her regarding code status, the patient would like to be a full code. Her Son, (Alriio Leavitt [phone]) would make decisions for her if she could not make them herself. Initial labs are pending at the time of the exam. Please refer to Dr. Hardin's attestation for any changes to the treatment plan Allergies Allergy/AdvReac Type Severity Reaction Status Date / Time Lisinopril TABS Allergy Unknown Uncoded 01/14/22 17:29 Home Medications Medication Instructions Recorded Confirmed Type cholecalciferol (vitamin D3) 125 10,000 units PO DAILY 08/04/18 01/14/22 History mcg (5,000 unit) capsule multivitamin 1 tab PO 3XWK 08/04/18 01/14/22 History metoprolol succinate 25 mg 25 mg PO DAILY #90 tabs 06/23/21 01/14/22 Rx tablet,extended release 24 hr Past Med/Surg History Medical History Abnormal EKG Allergic rhinitis Hypercholesterolemia Hypertension Hypertensive urgency Left sided numbness Left-sided weakness Lyme disease Lyme disease Migraine Weakness Surgical History History of cataract surgery History of dental surgery Family History Mother Hypertension Sister Hypertension Cancer Ovarian Ovarian cancer Grandmother Breast cancer Father No problems noted. Denies family history of Colon cancer Prostate cancer Myocardial infarction Social History Smoking Status: Never smoker Second Hand Exposure: Yes; Hx Alcohol Use: No Hx Substance Use: No Preferred Language: Wolof Visual Impairment: No Limitations Hearing Ability: Hard of Hearing Potline Monitor Required: No Beliefs That Will Affect Care: None marital status: Current Living Situation: Family Current Living Situation Comment: family lives w/ HER current occupational status: retired How many Children do You have: 8 Feels Safe at Home: Yes Childhood Exposure to Second-Hand Smoke: No caffeine: Yes during the past year weight has: remained stable Dental Care, Regularly: Yes Physical Activity Frequency: Daily Seatbelt Use: always Sunscreen Use: Yes Review of Systems Review of Systems: Denies current fever, chills, headache, changes in vision, hearing, taste, and smell, chest pain, SOB, cough, abdominal pain, nausea, vomiting, diarrhea, hematemesis, melena, dysuria, hematuria All systems have been reviewed and are otherwise negative. Physical Exam Physical Exam: Physical Exam: General: In no acute distress, stated age, well-nourished, good hygiene HEENT: Normocephalic, atraumatic, no scleral icterus, pupils around round, symmetrical, and reactive to light, moist mucus membranes, trachea midline, no thyromegaly Chest/Pulm: No respiratory distress, symmetrical chest expansion, clear guillaume ath sounds throughout Cardiac: RRR, no murmurs noted Abdomen: Negative for ascites and bruising, normoactive bowel sounds, soft, non-tender to palpation throughout Musculoskeletal: Symmetrical and without signs of acute trauma, upper and lower extremities with full ROM, no atrophy, spasticity, or flaccidity Extremities: Radial, dorsalis pedis, and posterior tibial pulses are intact and symmetrical, no edema noted in the BL LE's, varicose veins noted in the BL lower extremities Skin: Warm, dry, no rashes , lesions, or scars noted Neuro: Alert and oriented to person, place, month, year, and president, no focal defects, CN II-XII tested and intact, finger to nose test negative, no tremors noted Psych: No acute distress, calm and cooperative during the exam Results & Data Results & Data ([facility]) Vital Signs (Past 12 Hours) Vital Signs Temp Pulse Pulse Resp BP BP Pulse Ox 01/14/22 16:45 94 H 26 H 93 01/14/22 16:45 160/101 H 01/14/22 16:42 100 H 21 94 01/14/22 16:42 156/97 H 01/14/22 16:40 110 H 20 95 01/14/22 16:40 177/99 H 01/14/22 16:37 95 01/14/22 16:37 207/155 H 01/14/22 16:35 117 H 19 95 01/14/22 16:33 118 H 21 96 01/14/22 16:33 184/118 H 01/14/22 16:32 124 H 14 96 01/14/22 16:30 122 H 20 95 01/14/22 16:30 122 H 20 184/118 H 93 01/14/22 16:30 94 01/14/22 16:34 36.9 C 122 H 20 184/118 H 95 O2 Del Method 01/14/22 16:45 01/14/22 16:45 01/14/22 16:42 01/14/22 16:42 01/14/22 16:40 01/14/22 16:40 01/14/22 16:37 01/14/22 16:37 01/14/22 16:35 01/14/22 16:33 01/14/22 16:33 01/14/22 16:32 01/14/22 16:30 Room Air 01/14/22 16:30 Room Air 01/14/22 16:30 Room Air 01/14/22 16:34 Room Air Diagnostic Findings Chest X-Ray 01/14/22 16:44 XR chest 1V portable HISTORY: fall COMPARISON: Chest 09/30/2016. FINDINGS: No pneumothorax. No pleural effusions. Left basilar linear densities favor subsegmental atelectasis or scarring. Otherwise, the lungs are clear. The heart remains top normal in size. IMPRESSION: No acute process. ACT 112: Negative or not required by law. Electronically signed by: Jarvis Arrieta M.D. 01/14/2022 5:33 PM ECG Additional Comments: Sinus tachycardia with occasional Premature ventricular complexes Inferior infarct , age undetermined Possible Anterior infarct , age undetermined ST & T wave abnormality, consider lateral ischemia Abnormal ECG When compared with ECG of 01-OCT-2016 07:18, Significant changes have occurred Code Status & VTE Plan Code Status Full Code VTE Prophylaxis Plan VTE Prophylaxis will be ordered: Yes Supervising Physician Co-Signing Physician Notes Patient was seen and examined independently I discussed the case with Miguel MCBRIDE I reviewed pertinent past medical social family history and also the plan of care and agree with the plan of care. Patient had a fall while shopping. In the field EKG was abnormal concerning for STEMI. Patient was given medications in route, heart alert was called. Patient was evaluated Dr. Simpson who felt that her ST elevation was similar to previously old EKGs she also was pain-free at the time. Patient's initial troponin was 500. Recommendations were to use aspirin and heparin control blood pressure and patient have patient stabilized prior to catheterization likely on January 15. Evaluating the patient she truly was chest pain-free. She did have a lot of discomfort prehospital she said she just felt weird she cannot recall exactly why she fell least to my exam She awake alert appropriate cardiac exam is regular without murmurs lungs were clear extremities without edema she is hypertensive. Minimize risk factors controlling blood pressure continue aspirin patient be on therapeutic heparin drip. Patient will have serial troponins checked and likely an echocardiogram but be evaluated for interventional cardiology procedure on January 15. Any exceptions will be noted below PG Care Time/CCT Total # of Minutes Spent Total Time Spent with Patient: Total time spent is greater than 50% in coordination of care (as documented) at patient's floor/unit and/or counseling patient: [place] [address] Initial Inpt Care Lvl 3 Patient Type Established Medical Decision Making High Complexity Diagnoses ACS (acute coronary syndrome) I24.9 Hypercholesterolemia E78.00 Hypertension I10 Hypertension type: essential hypertension (1) Hypertension Hypertension type: essential hypertension Qualified Code(s): I10 - Essential (primary) hypertension
--- NOTE | 2022-01-14 17:00 | Cardiology Consultation ---
Date of Consultation January 14, 2022 Assessment & Plan (1) Hypertension: Blood pressure was very elevated. Improving with beta-carito. Resume metoprolol succinate ER 25 mg initial dose. We will titrate up the dose as tolerated by her heart rate. She should also receive her amlodipine 10 mg daily. Use nitroglycerin for any chest pain. (2) Hypercholesterolemia: To our knowledge she is no more than intermediate risk. We should check a fasting lipid panel. Further recommendations pending results of blood work, echo, and cath. (3) Abnormal EKG: Patient has no chest discomfort and no epigastric discomfort. It appears that the EKG changes which were more dynamic are secondary to her hypertensive urgency. However, she has significant Q waves anteriorly and inferiorly. I suspect she has multivessel coronary artery disease. Tentatively plan for cardiac catheterization tomorrow. If she has any recurrent symptoms, worsening EKG changes, then we will do her emergently tonight. I would place her on aspirin and heparin drip. Avoid Plavix or Brilinta since she may have multivessel disease requiring bypass grafting. Follow her troponin. If it is positive I would add a statin (atorvastatin 40 mg daily). We will get an echocardiogram in the morning. She will be placed on the [employer] Teacher list for possible add on. 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 She had epigastric discomfort and EMS was called. EKG on their monitor suggested ST elevation ID. Her blood pressure was noted to be very elevated. She was transported to the emergency department and while in route her epigastric discomfort began to improve. A "heart alert" was called prehospital. On my arrival the patient had a blood pressure over 200 systolic but was receiving beta-carito and nitroglycerin. She denied any chest heaviness, tightness, or shortness of breath. She denied any preceding chest heaviness, tightness, or shortness of breath. She had no epigastric discomfort. Repeat EKG was abnormal but did not show the same ST elevations (not meeting criteria for acute ID) and some ST depressions were improved compared to prehospital. I discussed with her my concern for underlying cardiac disease. I suggested that she should undergo cardiac cath to evaluate for coronary disease because even her baseline EKG was significantly abnormal. Appear to be Q waves inferiorly as well as anteriorly. She told me that since she had no chest pain and the EKG was improving with control of her blood pressure she preferred to have medical treatment rather than catheterization at this time. She did say she would be willing to undergo catheterization tomorrow. She would like to see what her blood work looks like. We agreed that should she have chest heaviness or tightness she would notify us immediately and we would do emergent catheterization. A repeat EKG performed after additional improvement in her blood pressure continued to show improvement in ST depressions and her ST elevations in leads V1 and V2 did not meet criteria for acute ID. Patient denies recent syncope, near syncope, orthopnea, PND, racing heartbeat, palpitations, or edema. She voices no other complaints or concerns at this raul e. Allergies Allergy/AdvReac Type Severity Reaction Status Date / Time Lisinopril TABS Allergy Uncoded 10/19/21 11:59 Home Medications Medication Instructions Recorded Confirmed Type cholecalciferol (vitamin D3) 125 10,000 units PO DAILY 08/04/18 10/19/21 History mcg (5,000 unit) capsule multivitamin 1 tab PO DAILY 08/04/18 10/19/21 History amlodipine 10 mg tablet 10 mg PO DAILY #90 tabs 03/26/19 10/19/21 Rx diclofenac sodium 1 % topical gel 2 g topical QID #100 grams 08/25/20 10/19/21 Rx metoprolol succinate 25 mg 25 mg PO DAILY #90 tabs 06/23/21 10/19/21 Rx tablet,extended release 24 hr Patient History Medical History Abnormal EKG Allergic rhinitis Hypercholesterolemia Hypertension Hypertensive urgency Left sided numbness Left-sided weakness Lyme disease Lyme disease Migraine Weakness Surgical History History of cataract surgery History of dental surgery Family History Mother Hypertension Sister Hypertension Cancer Ovarian Ovarian cancer Grandmother Breast cancer Father No problems noted. Denies family history of Colon cancer Prostate cancer Myocardial infarction Social History Smoking Status: Never smoker Second Hand Exposure: Yes; Hx Alcohol Use: No Hx Substance Use: No Preferred Language: Nepali Visual Impairment: No Limitations Hearing Ability: Hard of Hearing Chlorination Operator Required: No Beliefs That Will Affect Care: None marital status: Current Living Situation: Family Current Living Situation Comment: family lives w/ HER current occupational status: retired How many Children do You have: 8 Feels Safe at Home: Yes Childhood Exposure to Second-Hand Smoke: No caffeine: Yes during the past year weight has: remained stable Dental Care, Regularly: Yes Physical Activity Frequency: Daily Seatbelt Use: always Sunscreen Use: Yes Review of Systems Review of Systems: Negative x12 point except as per HPI Physical Exam Constitutional: WD/WN, vitals as above (Thin, cachectic, elderly) Eyes: PERRL, conjunctivae normal, anicteric sclerae ENMT: external ear and nose normal, oropharynx normal Neck: No JVD Respiratory: Clear to auscultation bilaterally. No wheezing, rhonchi, or rales. Cardiovascular: Regular rhythm, tachycardic rate, frequent PVCs on one of the EKGs. Soft systolic murmur. S4 gallop. No edema. Musculoskeletal: no cyanosis or clubbing, extremities motor strength 5/5 Neurologic: Cognition is intact. Speech is fluent. No tremor. Psychiatric: A+Ox3, euthymic affect [facility] ([facility]) Vital Signs (Past 12 Hours) Vital Signs Temp Pulse Pulse Resp BP BP Pulse Ox 01/14/22 16:45 94 H 26 H 93 01/14/22 16:45 160/101 H 01/14/22 16:42 100 H 21 94 01/14/22 16:42 156/97 H 01/14/22 16:40 110 H 20 95 01/14/22 16:40 177/99 H 01/14/22 16:37 95 01/14/22 16:37 207/155 H 01/14/22 16:35 117 H 19 95 01/14/22 16:33 118 H 21 96 01/14/22 16:33 184/118 H 01/14/22 16:32 124 H 14 96 01/14/22 16:30 122 H 20 95 01/14/22 16:30 122 H 20 184/118 H 93 01/14/22 16:30 94 01/14/22 16:34 36.9 C 122 H 20 184/118 H 95 O2 Del Method 01/14/22 16:45 01/14/22 16:45 01/14/22 16:42 01/14/22 16:42 01/14/22 16:40 01/14/22 16:40 01/14/22 16:37 01/14/22 16:37 01/14/22 16:35 01/14/22 16:33 01/14/22 16:33 01/14/22 16:32 01/14/22 16:30 Room Air 01/14/22 16:30 Room Air 01/14/22 16:30 Room Air 01/14/22 16:34 Room Air PG Care Time/CCT Total # of Minutes Spent Total Time Spent with Patient: Total time spent is greater than 50% in coordination of care (as documented) at patient's floor/unit and/or counseling patient: [place] [address] Office/Outpt Visit, New Patient Type New Diagnoses Hypertension I10 Hypertension type: essential hypertension Hypercholesterolemia E78.00 Abnormal EKG R94.31 (1) Hypertension Hypertension type: essential hypertension Qualified Code(s): I10 - Essential (primary) hypertension
[2022-01-14 17:04] LABS: Basophils # (auto) 0.02 K/uL (0-0.2); Basophils % (auto) 0.3 %; Eosinophils # (auto) 0.03 K/uL (0-0.50); Eosinophils % (auto) 0.4 %; Hematocrit (blood only) 44.5 % (34.1-44.9); Hemoglobin 14.8 g/dl (12.0-16.0); Immature Granulocytes # (auto) 0.02 K/uL (0.00-0.02); Immature Granulocytes % (auto) 0.3 %; Lymphocytes # (auto) 1.82 K/uL (1.2-3.4); Lymphocytes % (auto) 26.3 %; Mean Corpuscular Hemoglobin 30.5 pg (25.0-34.0); Mean Corpuscular Hgb Conc 33.3 g/dL (32.0-36.0); Mean Corpuscular Volume 91.8 fL (80.0-100.0); Mean Platelet Volume 10.1 fL (9.4-12.3); Monocytes # (auto) 0.56 K/uL (0.24-0.82); Monocytes % (auto) 8.1 %; Neutrophils # (auto) 4.46 K/uL (1.4-6.5); Neutrophils % (auto) 64.6 %; Platelet Count 224 K/uL (130-400); RDW Coefficient of Variation 13.4 % (11.5-14.5); RDW Standard Deviation 45.7 fL (36.4-46.3); Red Blood Count 4.85 M/uL (3.93-5.22); White Blood Count 6.91 K/ul (4.8-10.8)
[2022-01-14] MEDS ORDERED: HEPARIN SOD (PORCINE) 1000 UNIT/ML IV ONE (17:08)
[2022-01-14] MEDS ORDERED: HEPARIN SODIUM/DEXTROSE 25,000 UNITS/500 ML BAG IV SCH (17:15)
[2022-01-14 17:18] LABS: Partial Thromboplastin Ratio 0.9; Partial Thromboplastin Time 25.1 Seconds (21.0-31.0); Prothrombin Time 10.9 Seconds (9.0-12.0)
[2022-01-14 17:25] LABS: Albumin Globulin Ratio 1.6 (0.9-2); Albumin Level 4.2 gm/dl (3.4-5.0); BUN Creatinine Ratio 26.5 (10-20); Bilirubin,Total 0.9 mg/dl (0.2-1.0); Calcium 9.3 mg/dl (8.5-10.1); Creatinine Clr Calc Pharmacy 44.1 ml/min; Est GFR (African American) 75.6 ml/min; Est GFR (Non-African American) 65.2 ml/min; Globulin 2.7 gm/dl (2.5-4.0); Total Protein 6.9 gm/dl (6.0-8.3)
--- NOTE | 2022-01-14 17:34 | XRay Report ---
XR chest 1V portable HISTORY: fall COMPARISON: Chest 09/30/2016. FINDINGS: No pneumothorax. No pleural effusions. Left basilar linear densities favor subsegmental ate lectasis or scarring. Otherwise, the lungs are clear. The heart remains top normal in size. IMPRESSION: No acute process. ACT 112: Negative or not required by law. Electronically signed by: Jarvis Arrieta M.D. 01/14/2022 5:33 PM
[2022-01-14 17:38] LABS: Troponin I High Sensitivity 537.8 pg/ml (0-14)
[2022-01-14] MEDS ORDERED: LABETALOL HCL IV 5 MG/ML 20ML IV PRN (17:38)
[2022-01-14 17:39] LABS: Chol HDL Ratio 3.5 (0-5)
[2022-01-14] MEDS ORDERED: NITROGLYCERIN SL 0.4 MG/TAB TAB SL PRN (19:15)
[2022-01-14] MEDS ORDERED: ACETAMINOPHEN 325 MG TAB PO PRN (19:15)
[2022-01-14] MEDS: NITROGLYCERIN 2% OINTMENT 30GM TUBE EXT SCH ×2 (19:29→23:15)
[2022-01-14 23:55] LABS: Partial Thromboplastin Ratio 1.9
[2022-01-15 00:06] LABS: Partial Thromboplastin Time 52.8 Seconds (21.0-31.0)
[2022-01-15] MEDS: NITROGLYCERIN 2% OINTMENT 30GM TUBE EXT SCH ×2 (05:52→11:33)
[2022-01-15 07:17] LABS: Hematocrit (blood only) 41.4 % (34.1-44.9); Hemoglobin 14.2 g/dl (12.0-16.0); Mean Corpuscular Hemoglobin 30.7 pg (25.0-34.0); Mean Corpuscular Hgb Conc 34.3 g/dL (32.0-36.0); Mean Corpuscular Volume 89.4 fL (80.0-100.0); Mean Platelet Volume 10.1 fL (9.4-12.3); Platelet Count 190 K/uL (130-400); RDW Coefficient of Variation 13.5 % (11.5-14.5); RDW Standard Deviation 44.2 fL (36.4-46.3); Red Blood Count 4.63 M/uL (3.93-5.22)
[2022-01-15 07:30] LABS: INR 1.1 (0.9-1.1); Prothrombin Time 11.4 Seconds (9.0-12.0)
[2022-01-15 07:39] LABS: Albumin Globulin Ratio 1.5 (0.9-2); Albumin Level 3.8 gm/dl (3.4-5.0); BUN Creatinine Ratio 26.7 (10-20); Bilirubin,Total 1.1 mg/dl (0.2-1.0); Calcium 8.9 mg/dl (8.5-10.1); Creatinine Clr Calc Pharmacy 52.9 ml/min; Est GFR (African American) 97.7 ml/min; Est GFR (Non-African American) 84.3 ml/min; Globulin 2.6 gm/dl (2.5-4.0); Magnesium 2.1 mg/dl (1.7-2.4); Potassium 3.6 mmol/L (3.5-5.1); Total Protein 6.4 gm/dl (6.0-8.3)
[2022-01-15] MEDS: METOPROLOL SUCC 25MG EXT REL TAB PO SCH (08:59)
[2022-01-15] MEDS: ASPIRIN 81 MG ECTAB PO SCH (08:59)
[2022-01-15] MEDS: CHOLECALCIFEROL 5,000 UNITS 125 MCG TAB PO SCH (08:59)
[2022-01-15 09:32] LABS: Partial Thromboplastin Ratio 1.8; Partial Thromboplastin Time 48.7 Seconds (21.0-31.0)
--- NOTE | 2022-01-15 09:35 | XCELERA ---
[id number]
--- NOTE | 2022-01-15 15:28 | Pre Anesthesia Assessment ---
Date of Service January 15, 2022 Pre Sedation Assessment Vital Signs Temp Pulse Pulse Resp BP BP Pulse Ox 01/15/22 11:34 98.1 F 90 16 157/80 H 98 01/15/22 07:46 98.2 F 93 H 16 148/98 H 95 01/15/22 03:43 97.7 F 92 H 17 132/78 94 01/14/22 23:14 97.9 F 107 H 16 160/96 H 96 01/14/22 23:10 77 01/14/22 22:20 96 H 01/14/22 19:15 97.7 F 104 H 20 175/106 H 97 01/14/22 18:40 97.7 F 104 H 20 175/106 H 97 01/14/22 18:13 94 H 18 192/117 H 96 01/14/22 18:07 94 H 18 192/117 H 96 01/14/22 17:06 100 H 20 174/101 H 96 01/14/22 16:45 94 H 26 H 93 01/14/22 16:45 160/101 H 01/14/22 16:42 100 H 21 94 01/14/22 16:42 156/97 H 01/14/22 16:40 110 H 20 95 01/14/22 16:40 177/99 H 01/14/22 16:37 95 01/14/22 16:37 207/155 H 01/14/22 16:35 117 H 19 95 01/14/22 16:33 118 H 21 96 01/14/22 16:33 184/118 H 01/14/22 16:32 124 H 14 96 01/14/22 16:30 122 H 20 95 01/14/22 16:30 122 H 20 184/118 H 93 01/14/22 16:30 94 01/14/22 16:34 98.4 F 122 H 20 184/118 H 95 O2 Del Method 01/15/22 11:34 Room Air 01/15/22 07:46 Room Air 01/15/22 03:43 Room Air 01/14/22 23:14 Room Air 01/14/22 23:10 01/14/22 22:20 01/14/22 19:15 Room Air 01/14/22 18:40 Room Air 01/14/22 18:13 Room Air 01/14/22 18:07 Room Air 01/14/22 17:06 Room Air 01/14/22 16:45 01/14/22 16:45 01/14/22 16:42 01/14/22 16:42 01/14/22 16:40 01/14/22 16:40 01/14/22 16:37 01/14/22 16:37 01/14/22 16:35 01/14/22 16:33 01/14/22 16:33 01/14/22 16:32 01/14/22 16:30 Room Air 01/14/22 16:30 Room Air 01/14/22 16:30 Room Air 01/14/22 16:34 Room Air Cardiovascular RRR, no murmur, no edema Respiratory normal respiratory effort, lungs clear to auscultation Pre-Sedation Airway Assessment Smoking Status: Never smoker Hx Sleep Apnea: No Hx Difficult Intubation: No Short, Thick Neck: No Thyromental Distance: > or= 3.5 Finger Breadths Oral Cavity: + WNL Mallampati Class: III ASA: ASA3 Procedure Planning Contraindications for Sedation: none Current Medications Reviewed: Yes Notes The planned sedation has been discussed with the patient. Informed Consent was obtained. I have identified the patient, determined the appropriateness of sedation and have assessed the patient immediately prior to the procedure. All medicine(s) and interventions are by my order.
[2022-01-15] MEDS ORDERED: HEPARIN (PORCINE) 1000 UNIT/ML 10 ML (CATH LAB USE ONLY) ONE (15:29)
[2022-01-15] MEDS ORDERED: fentaNYL citrate 100 MCG/2 ML VIAL ONE (15:29)
[2022-01-15] MEDS ORDERED: niCARdipine HCL INJ 2.5 MG/ML 10 ML AMP ONE (15:29)
[2022-01-15] MEDS ORDERED: NITROGLYCERIN/D5W 100MCG/ML 20ML SYR ONE (15:29)
[2022-01-15] MEDS ORDERED: MIDAZOLAM HCL 1 MG/ML 2ML VIAL ONE (15:29)
--- NOTE | 2022-01-15 16:50 | Electrocardiogram Report ---
Test Reason : Blood Pressure : / mmHG Vent. Rate : 096 BPM Atrial Rate : 096 BPM P-R Int : 210 ms QRS Dur : 088 ms QT Int : 378 ms P-R-T Axes : 061 -06 118 degrees QTc Int : 477 ms Sinus rhythm with 1st degree A-V block with occasional Premature ventricular complexes Left ventricular hypertrophy with repolarization abnormality Inferior infarct (cited on or before 14-JAN-2022) Anteroseptal infarct (cited on or before 30-SEP-2016) Abnormal ECG When compared with ECG of 14-JAN-2022 16:30, (unconfirmed) MI interval has increased Confirmed by Alvino Stanton ([id number]) on 01/15/2022 4:50:22 PM Referred By: REFERRED SELF Confirmed By:Alvino Stanton
--- NOTE | 2022-01-15 16:50 | Electrocardiogram Report ---
Test Reason : Blood Pressure : / mmHG Vent. Rate : 130 BPM Atrial Rate : 130 BPM P-R Int : 176 ms QRS Dur : 082 ms QT Int : 266 ms P-R-T Axes : 051 -08 120 degrees QTc Int : 391 ms Sinus tachycardia with occasional Premature ventricular complexes Inferior infarct , age undetermined Anteroseptal ST elevation Abnormal ECG When compared with ECG of 01-OCT-2016 07:18, Significant changes have occurred Confirmed by Alvino Stanton ([id number]) on 01/15/2022 4:49:51 PM Referred By: REFERRED SELF Confirmed By:Alvino Stanton
[2022-01-15] MEDS ORDERED: CLOPIDOGREL BISULFATE 300 MG TAB ONE (16:56)
[2022-01-15] MEDS ORDERED: SODIUM CHLORIDE 0.9% 1000ML 1,000 ML IV SCH (17:45)
--- NOTE | 2022-01-15 17:48 | Post Anesthesia Assessment ---
Date of Service January 15, 2022 Post Sedation Assessment Vital Signs Temp Pulse Pulse Resp BP BP Pulse Ox 01/15/22 17:15 98.1 F 94 H 18 132/90 95 01/15/22 14:40 89 21 129/76 97 01/15/22 11:34 98.1 F 90 16 157/80 H 98 01/15/22 07:46 98.2 F 93 H 16 148/98 H 95 01/15/22 03:43 97.7 F 92 H 17 132/78 94 01/14/22 23:14 97.9 F 107 H 16 160/96 H 96 01/14/22 23:10 77 01/14/22 22:20 96 H 01/14/22 19:15 97.7 F 104 H 20 175/106 H 97 01/14/22 18:40 97.7 F 104 H 20 175/106 H 97 01/14/22 18:13 94 H 18 192/117 H 96 01/14/22 18:07 94 H 18 192/117 H 96 O2 Del Method 01/15/22 17:15 Room Air 01/15/22 14:40 Room Air 01/15/22 11:34 Room Air 01/15/22 07:46 Room Air 01/15/22 03:43 Room Air 01/14/22 23:14 Room Air 01/14/22 23:10 01/14/22 22:20 01/14/22 19:15 Room Air 01/14/22 18:40 Room Air 01/14/22 18:13 Room Air 01/14/22 18:07 Room Air Recovery Score Activity: Moves 4 extremities Respiration: Deep Breath/Cough Circulation: +/-20% PreAnes Value Consciousness: Fully Awake Oxygen Saturation: O2 needed for >90% Discharge Sedation Level of Care: Fast Track Phase II Post Sedation Plan On clinical assessment, the patient appears to have tolerated the sedation without complications. Patient is recovering as anticipated. Patient will continue to be monitored by nursing and may be discharged when sedation discharge criteria are met per below protocol. Upon Completions of procedure up to 15 minutes continue every 5 minute vital signs and the P.A.R. score; then discharge to a Phase I or Fast Track to Phase II per the following guidelines: * Discharge Patient to appropriate Phase II area if PAR is 8 or greater or return to pre- procedure baseline. The post - procedure orders will be as directed. * If PAR score is less than 8 or not return to pre-procedure baseline then patient will follow Phase I monitoring till PAR is reached for Phase II. The Phase I may be done in procedure room or may call to secure a Phase I area. * If naloxone or flumazenil are used for reversal, hold in Phase I for continued monitoring from when last reversal dose was given for a minimum of 60 minutes or longer pending the nurse and/or physician discretion of patient condition before discharge to Phase II. Please call the Sedation Physician to re-evaluate and complete post-note for discharge to Phase II area. Do NOT discharge from procedure sedation or Phase 1 until post- sedation evaluation note is complete by procedure /sedation MD Sedation Discharge Instructions to be given to the patient at discharge to home.
--- NOTE | 2022-01-15 18:18 | Cardiac Catheterization ---
[facility] Data: Business Services Analyst Cardiac Status Clinical evaluation leading to the procedure CAD Presenation: Non STEMI Anginal Classification: CCS IV Heart Failure: No Diagnostic Physicians Name: Suleman Oneal MD Closure Device Recommendations: PCI without planned CABG Cardiac Cath Procedure Full Procedure Date January 15, 2022 Pre-Procedure Diagnosis Pre-Procedure Diagnosis: Non STEMI AUC Score AUC Score: 8 Post-Procedure Diagnosis Post-Procedure Diagnosis: Severe CAD, Successful PCI and Normal Intracardiac Pressures Procedure(s) Performed Procedure(s) Performed: Coronary Angiography, Left Heart Cath, Drug Eluting Stent and IVUS Risk Management Manager Suleman Oneal MD Belt Lacer(s) Pharmacovigilance Scientist Estimated Blood Loss Estimated Blood Loss: 15 Medication(s) Medication(s): Clopidogrel, Fentanyl, Heparin, Lidocaine 1%, Nicardipine, Nitroglycerin and Versed Summary of Findings Indication: ACS, near syncope spell, Moderate to severe LV dysfunction with LAD distribution wall motion abnormality Access: 6 Fr right radial artery Catheters: [place]is[place], EBU 3.5 guide Findings: LM -Short, normal caliber, no significant disease LAD -medium caliber, 95% acute proximal LAD at takeoff of high D1. 40 to 50% earlymid disease at takeoff of D2. Mid to distal vessel tortuous with with mild diffuse disease and extends around apex. Medium D1 travels and OM distribution, tortuous. 50% diffuse proximal disease. Small D2 with 90% ostial stenosis. Circumflex - Small caliber, tortuous, luminal irregularities RCA -large caliber, dominant, 20 to 30% lateproximal disease, 70% focal mid segment stenosis. Distal vessel, medium PDA without significant disease. Large posterior AV branch with luminal irregularities, distal PLB without disease. -- PCI -- Antithrombotic therapy: Heparin, clopidogrel Procedure: Left main cannulated with EBU 3.5 guide Pre-procedure flow LUIS MANUEL 3 Premium Representative 50 wire placed into first diagonal Whisper wire passed across LAD lesion into distal vessel Proximal LAD lesion predilated with 2.5 compliant balloon [place] IVUS catheter placed across stenosis and pullback revealed mild to moderate mid segment disease with severe stenosis of ostial D2. Severe thrombotic, mildly calcified disease in proximal segment extending across takeoff of D1. Minimal left main/LAD ostial disease. Dilated proximal LAD lesion stented with 3.0 x 12 mm Xience drug-eluting stent Stent post-dilated with 3.5 noncompliant balloon IC vasodilators administered for spasm Post procedure LUIS MANUEL 3 flow, stent well expanded with minimal residual stenosis and no apparent cardiac complications. LUIS MANUEL-3 flow in D1, D2. Arterial Closure: TR band Summary: 1. Multivessel coronary artery disease -Acute 95% proximal LAD stenosis at takeoff of D1. Medium D1 50% proximal -40-50% earlymid LAD at takeoff of D2. Small D2 90% ostial 70% focal mid RCA 2. Successful PCI of proximal LAD with single MICHELLE across takeoff of D1 (3.0 x 12 mm Xience; postdilated with 3.5 NC). Recommendations: To PCU for continued monitoring Loaded with clopidogrel 600 mg in Business Services Analyst Continue dual-antiplatelet therapy for at least 1 year Titrate beta-carito, ARB as BP allows Continue statin, and ASCVD risk factor modification Consult cardiac Rehab Recommend medical management of residual CAD. If refractory exertional symptoms in the future could consider PCI to mid RCA. Hemodynamics Rest Ao:: 141/76/104 Final Ao: 171/84/123 LV: -- Recommendations Recommendations: PCI without planned CABG Specimens Specimens: None Radiation Exposure (mGy) 681 Contrast (mls) 110 Drains Drains: None Anesthesia Moderate Procedural Complication(s) None Disposition PCU I attest to the content of the Intraoperative Record and any orders documented therein. Any exceptions are noted below. [facility] Card Cath Procedure Codes Cardiac Catheterization Procedure 1: Cardiovascular Cath Procedures: 24570 Coronaries Therapeutic Services & Ancillary Procedure 1: Cardiovascular Tx and Anc Procedures: 50620 IV Ultrasound (Coronary or Graft) Moderate Sedation Procedure 1: Sedation/Anesthesia: 47885 Mod Sedation by the same physician;Init15 Min Child Age 5 & Up Procedure 2: Sedation/Anesthesia: 31121 Mod Sedation by the same physician; Ea [id number] Minutes Stenting Procedure 1: Cardiovascular Stent Procedures: 06308 Perc transcatheter placement of intracoronary stent(s), with ang PG Care Time/CCT Total # of Minutes Spent Total Time Spent with Patient: Total time spent is greater than 50% in coordination of care (as documented) at patient's floor/unit and/or counseling patient:
--- NOTE | 2022-01-15 22:02 | Hospitalist Progress Note ---
Date of Service January 15, 2022 Assessment & Plan (1) ACS (acute coronary syndrome): Plan: -Admit to the PCU -Patient is currently afebrile, hypertensive at 174/101, and stable on RA -Patient was noted to be hypertensive on EMS arrival with systolics in the 220's and ECG changes concerning for possible anterior STEMI -Heart Alert was called and she was evaluated by Cardiology at bedside, their recommends as below: (1) Hypertension: -Blood pressure was very elevated. Improving with beta-carito. Resume metoprolol succinate ER 25 mg initial dose. We will titrate up the dose as tolerated by her heart rate. She should also receive her amlodipine 10 mg daily. Use nitroglycerin for any chest pain. (2) Hypercholesterolemia: -To our knowledge she is no more than intermediate risk. We should check a fasting lipid panel. Further recommendations pending results of blood work, echo, and cath. (3) Abnormal EKG: -Patient has no chest discomfort and no epigastric discomfort. It appears that the EKG changes which were more dynamic are secondary to her hypertensive urgency. However, she has significant Q waves anteriorly and inferiorly. I suspect she has multivessel coronary artery disease. Tentatively plan for cardiac catheterization tomorrow. If she has any recurrent symptoms, worsening EKG changes, then we will do her emergently tonight. I would place her on aspirin and heparin drip. Avoid Plavix or Brilinta since she may have multivessel disease requiring bypass grafting. Follow her troponin. If it is positive I would add a statin (atorvastatin 40 mg daily). We will get an echocardiogram in the morning. She will be placed on the Wiping Cloth Cutter list for possible add on. -Continue heparin drip, patient received 324 PO aspirin in route to ED, will con tinue tomorrow -Will add 0.5 inch of Nitro paste q6h to assist with BP management and anginal symptoms -Will continue home metoprolol, patient is no longer taking Amlodipine -Will also add prn IV labetalol for systolic BP > 160 mmHg -Initial high sensitivity trop elevated at 537, will discuss starting a statin with the patient -Will repeat next trop in 2 hours then q6h overnight, monitor on tele -If any concerning symptoms, uncontrolled BP, or concerning troponin elevations/ECG changes would reach out to Cardiology immediately to consider emergent heart cath -Will keep NPO except meds for now as there is concern she may need heart cath overnight with her first troponin significantly elevated -AM CBC and BMP ON 01/15 1. Multivessel coronary artery disease -Acute 95% proximal LAD stenosis at takeoff of D1. Medium D1 50% proximal -40-50% earlymid LAD at takeoff of D2. Small D2 90% ostial 70% focal mid RCA 2. Successful PCI of proximal LAD with single MICHELLE across takeoff of D1 (3.0 x 12 mm Xience; postdilated with 3.5 NC). Recommendations: To PCU for continued monitoring Loaded with clopidogrel 600 mg in Wiping Cloth Cutter Continue dual-antiplatelet therapy for at least 1 year Titrate beta-carito, ARB as BP allows Continue statin, and ASCVD risk factor modification Consult cardiac Rehab Anticipate discharge in AM. (2) Hypercholesterolemia: Plan: -Patient is not on a statin as she has been concerned about side effects in the past -Spoke to her regarding starting a statin tonight as per Cardiology's recommendations, she expressed that she understood the risks of not starting one tonight. She would like to wait until after the heart cath to see if it is absolutely necessary that she needs to start statin therapy -Follow up on AM lipid panel and continue discussions regarding statin therapy during her admission (3) Hypertension: Plan: -Noted to be hypertensive on arrival with systolics in the 220's -S/P 10 mg IV labetalol -Patient normally on metoprolol outpatient -Will continue metoprolol, added 0.5 inches of nitro paste for better BP management and anginal symptoms, also adding prn IV labetalol for systolic BP > 160 Plan The patient was discussed with Dr. Hardin at the time of the admission Admission and Anticipated Discharge Date Admission Date: January 14, 2022 Subjective 81 yo female reports doing well. She has no new complaints. Review of Systems Review of Systems: All systems reviewed & are unremarkable except as noted in HPI & below Physical Exam Physical Exam: General: In no acute distress, stated age, well-nourished, good hygiene HEENT: Normocephalic, atraumatic, no scleral icterus, pupils around round, symmetrical, and reactive to light, moist mucus membranes, trachea midline, no thyromegaly Chest/Pulm: No respiratory distress, symmetrical chest expansion, clear breath sounds throughout Cardiac: RRR, no murmurs noted Abdomen: Negative for ascites and bruising, normoactive bowel sounds, soft, non-tender to palpation throughout Musculoskeletal: Symmetrical and without signs of acute trauma, upper and lower extremities with full ROM, no atrophy, spasticity, or flaccidity Extremities: Radial, dorsalis pedis, and posterior tibial pulses are intact and symmetrical, no edema noted in the BL LE's, varicose veins noted in the BL lower extremities Skin: Warm, dry, no rashes , lesions, or scars noted Neuro: Alert and oriented to person, place, month, year, and president, no focal defects, CN II-XII tested and intact, finger to nose test negative, no tremors noted Psych: No acute distress, calm and cooperative during the exam Results & Data Results & Data ([facility]) Vital Signs (Past 12 Hours) Vital Signs Temp Pulse Resp BP Pulse Ox Pulse Ox O2 Del Method 01/15/22 19:15 95 01/15/22 18:59 36.9 C 94 H 20 114/73 95 Room Air 01/15/22 17:58 36.7 C 95 H 18 124/80 95 Room Air 01/15/22 17:15 36.7 C 94 H 18 132/90 95 Room Air 01/15/22 14:40 89 21 129/76 97 Room Air 01/15/22 11:34 36.7 C 90 16 157/80 H 98 Room Air O2 Del Method 01/15/22 19:15 Room Air 01/15/22 18:59 01/15/22 17:58 01/15/22 17:15 01/15/22 14:40 01/15/22 11:34 PG Care Time/CCT Total # of Minutes Spent Total Time Spent with Patient: Total time spent is greater than 50% in coordination of care (as documented) at patient's floor/unit and/or counseling patient: Coding Level of Care Code 66324 Subseq Hosp Care Lvl 2 Diagnoses ACS (acute coronary syndrome) I24.9 Hypercholesterolemia E78.00 Hypertension I10 Hypertension type: essential hypertension Time Spent (min) 25 (1) Hypertension Hypertension type: essential hypertension Qualified Code(s): I10 - Essential (primary) hypertension
[2022-01-16 08:07] LABS: Hematocrit (blood only) 42.3 % (34.1-44.9); Hemoglobin 14.4 g/dl (12.0-16.0); Mean Corpuscular Hemoglobin 30.8 pg (25.0-34.0); Mean Corpuscular Volume 90.4 fL (80.0-100.0); Platelet Count 172 K/uL (130-400); RDW Coefficient of Variation 13.5 % (11.5-14.5); Red Blood Count 4.68 M/uL (3.93-5.22); White Blood Count 6.35 K/ul (4.8-10.8)
[2022-01-16 08:27] LABS: Albumin Globulin Ratio 1.4 (0.9-2); Albumin Level 3.5 gm/dl (3.4-5.0); BUN Creatinine Ratio 31.7 (10-20); Bilirubin,Total 1.3 mg/dl (0.2-1.0); Calcium 8.6 mg/dl (8.5-10.1); Creatinine Clr Calc Pharmacy 56.2 ml/min; Est GFR (African American) 97.7 ml/min; Est GFR (Non-African American) 84.3 ml/min; Globulin 2.5 gm/dl (2.5-4.0); Potassium 3.5 mmol/L (3.5-5.1)
[2022-01-16 08:31] LABS: INR 1.1 (0.9-1.1); Prothrombin Time 11.4 Seconds (9.0-12.0)
[2022-01-16] MEDS: ASPIRIN 81 MG ECTAB PO SCH (08:51)
[2022-01-16] MEDS: METOPROLOL SUCC 25MG EXT REL TAB PO SCH (08:51)
[2022-01-16] MEDS: CHOLECALCIFEROL 5,000 UNITS 125 MCG TAB PO SCH (08:51)
[2022-01-16] MEDS ORDERED: CLOPIDOGREL BISULFATE 75 MG TAB PO SCH (09:00)
[2022-01-16] MEDS ORDERED: SPIRONOLACTONE 12.5 MG TAB PO SCH (09:00)
[2022-01-16] MEDS ORDERED: VALSARTAN/SACUBITRIL 26/24MG TAB PO SCH (09:00)
[2022-01-16] MEDS ORDERED: ATORVASTATIN 40 MG TAB PO SCH (09:00)
--- NOTE | 2022-01-16 09:21 | Cardiology Progress Note ---
Date of Service January 16, 2022 Assessment & Plan (1) ACS (acute coronary syndrome): Plan: --Acute prox LAD stenosis post PCI with MICHELLE --70% mid RCA, 50% D1, 90% small D2 2. ICM - EF 35-40%, LAD distribution wall motion abnormality 3. Hypertension 4. Dyslipidemia Chest pain free today. Hemodynamically and electrically stable overnight. No access site complications. No heart failure on exam. -- Continue DAPT with ASA/Clopidogrel for at least 1 year -- Continue toprol XL, start losartan 25mg daily and spironolactone. -- Start Atorvastatin 40mg daily. -- Up walking in halls today. If stable OK with discharge today. -- Will need repeat labs on Saturday. F/up with Dr. Simpson in 1-2 weeks. Admission and Anticipated Discharge Date Admission Date: January 14, 2022 Subjective Feeling well this morning. No chest pain overnight. Breathing comfortably. No events on telemetry. Review of Systems Review of Systems: All systems reviewed & are unremarkable except as noted in HPI & below Physical Exam Physical Exam: General: Comfortable HEENT: Sclerae anicteric Lungs: Clear to auscultation bilaterally Cardiac: Regular rate and rhythm, no murmurs. No JVD Vascular: 2+ RT radial, no ecchymosis or hematoma. Abdomen: Soft, nontender Extremities: Well perfused, no peripheral edema. Varicose veins Neuro: Nonfocal Psych: Alert orient x3, normal affect and mood Results & Data ([facility]) Vital Signs (Past 12 Hours) Vital Signs Temp Pulse Pulse Resp BP Pulse Ox O2 Del Method 01/16/22 07:24 98.2 F 73 18 137/68 97 Room Air 01/16/22 03:16 97.7 F 87 20 112/85 96 Room Air 01/15/22 22:08 89 01/15/22 22:30 97.7 F 92 H 20 155/93 H 94 Room Air PG Care Time/CCT Total # of Minutes Spent Total Time Spent with Patient: Total time spent is greater than 50% in coordination of care (as documented) at patient's floor/unit and/or counseling patient: Coding Level of Care Code 20644 Subseq Hosp Care Lvl 3 Diagnoses ACS (acute coronary syndrome) I24.9
[2022-01-16] MEDS ORDERED: LOSARTAN POTASSIUM 25 MG TAB PO SCH (09:45)
--- NOTE | 2022-01-23 12:22 | Discharge Summary ---
Date of Service January 16, 2022 Admission HPI Per Admitting Provider Carol is an 81 year old female with a PMH significant for HTN, hyperlipidemia, migraines, arthritis who presented to the [facility] ED on 01/14/22 via EMS as a heart alert. Per EMS, the patient was at [facility] and had a mechanical fall. After she was noted to have indigestion and EMS was found. The patient was found to be hypertensive with initial systolic BP in the 220's, ECG was concerning for ST segment changes in the anterior leads. The patient was given full dose aspirin and a dose of Nitroglycerine by EMS in transit to the hospital. In the ED the patient was found to be afebrile, hypertensive at 184/118, and stable on RA. Cardiology evaluated the patient and discussed the possibility of emergent heart cath, she elected to start with a Heparin drip and wait to go to the cath room until tomorrow. In the ED the patient was given 10 mg IV labetalol and her BP improved to 160/101. She was started on a heaprin drip prior to admission. At the time of the exam the patient was resting comfortably in bed in no acute distress with her son sitting bedside. The patient states that she has been in her normal state of health and was in line at [facility] waiting to buy some books. She took a few steps to move up in line and stumbled, causing her to fall on the ground. She states that she first landed on her buttocks then gently on her back. She denies hitting her head, losing consciousness, and pain of any kind at the time of my exam. She noted some indigestion while in the ambulance but this subsided when she belched. She denies a previous history of cardiac issues and states that she is only on metoprolol at home. When asked if she was ever on a statin she states that she was offered one prior by her PCP but she declined due to adverse effects experienced by friends who were on statins. I explained to her that we will get fasting lipids in the morning, if elevated we would highly recommend starting one to prevent strokes and future heart attacks. I spoke to her regarding code status, the patient would like to be a full code. Her Son, (Alirio Leavitt [phone]) would make decisions for her if she could not make them herself. Initial labs are pending at the time of the exam. Please refer to Dr. Hardin's attestation for any changes to the treatment plan Principal Diagnosis ACS Discharge Exam General: In no acute distress, stated age, well-nourished, good hygiene HEENT: Normocephalic, atraumatic, no scleral icterus, pupils around round, sym metrical, and reactive to light, moist mucus membranes, trachea midline, no thyromegaly Chest/Pulm: No respiratory distress, symmetrical chest expansion, clear breath sounds throughout Cardiac: RRR, no murmurs noted Abdomen: Negative for ascites and bruising, normoactive bowel sounds, soft, non- tender to palpation throughout Musculoskeletal: Symmetrical and without signs of acute trauma, upper and lower extremities with full ROM, no atrophy, spasticity, or flaccidity Extremities: Radial, dorsalis pedis, and posterior tibial pulses are intact and symmetrical, no edema noted in the BL LE's, varicose veins noted in the BL lower extremities Skin: Warm, dry, no rashes , lesions, or scars noted Neuro: Alert and oriented to person, place, month, year, and president, no focal defects, CN II-XII tested and intact, finger to nose test negative, no tremors noted Psych: No acute distress, calm and cooperative during the exam Discharge Data Allergies Allergy/AdvReac Type Severity Reaction Status Date / Time lisinopril Allergy Unknown Verified 01/15/22 11:08 Consultations 01/14/22 17:39 ED Decision to Admit Stat 01/15/22 09:14 Consult Cardiology Routine 01/15/22 17:41 Consult Cardiac Rehabilitation Routine Procedures Performed Operation Date: 01/14/22 16:40 <No data on this case meets the specified criteria> Operation Date: 01/15/22 12:00 Actual Procedures p Cineradiography w/Routine Exam - Meet Oneal MD s IVUS Coronary Single Vessel - Meet Oneal MD s Drug Eluting Stent SGl Vessel - Meet Oneal MD s Cath, Coronaries ONLY (no LV) - Meet Oneal MD Ordered Studies 01/14/22 16:36 CL Cath Imgs for PACS use only Stat 01/15/22 09:44 CL Cath Imgs for PACS use only Stat 01/15/22 17:06 CL IVUS Coronary Single Vessel Routine Hospital Course (1) ACS (acute coronary syndrome): -Admit to the PCU -Patient is currently afebrile, hypertensive at 174/101, and stable on RA -Patient was noted to be hypertensive on EMS arrival with systolics in the 220's and ECG changes concerning for possible anterior STEMI -Heart Alert was called and she was evaluated by Cardiology at bedside, their recommends as below: (1) Hypertension: -Blood pressure was very elevated. Improving with beta-carito. Resume metoprolol succinate ER 25 mg initial dose. We will titrate up the dose as tolerated by her heart rate. She should also receive her amlodipine 10 mg daily. Use nitroglycerin for any chest pain. (2) Hypercholesterolemia: -To our knowledge she is no more than intermediate risk. We should check a fasting lipid panel. Further recommendations pending results of blood work, echo, and cath. (3) Abnormal EKG: -Patient has no chest discomfort and no epigastric discomfort. It appears that the EKG changes which were more dynamic are secondary to her hypertensive urgency. However, she has significant Q waves anteriorly and inferiorly. I suspect she has multivessel coronary artery disease. Tentatively plan for cardiac catheterization tomorrow. If she has any recurrent symptoms, worsening EKG changes, then we will do her emergently tonight. I would place her on aspirin and heparin drip. Avoid Plavix or Brilinta since she may have multivessel disease requiring bypass grafting. Follow her troponin. If it is positive I would add a statin (atorvastatin 40 mg daily). We will get an echocardiogram in the morning. She will be placed on the [employer] list for possible add on. -Continue heparin drip, patient received 324 PO aspirin in route to ED, will continue tomorrow -Will add 0.5 inch of Nitro paste q6h to assist with BP management and anginal symptoms -Will continue home metoprolol, patient is no longer taking Amlodipine -Will also add prn IV labetalol for systolic BP > 160 mmHg -Initial high sensitivity trop elevated at 537, will discuss starting a statin with the patient -Will repeat next trop in 2 hours then q6h overnight, monitor on tele -If any concerning symptoms, uncontrolled BP, or concerning troponin elevations/ECG changes would reach out to Cardiology immediately to consider emergent heart cath -Will keep NPO except meds for now as there is concern she may need heart cath overnight with her first troponin significantly elevated -AM CBC and BMP ON 01/15 1. Multivessel coronary artery disease -Acute 95% proximal LAD stenosis at takeoff of D1. Medium D1 50% proximal -40-50% earlymid LAD at takeoff of D2. Small D2 90% ostial 70% focal mid RCA 2. Successful PCI of proximal LAD with single MICHELLE across takeoff of D1 (3.0 x 12 mm Xience; postdilated with 3.5 NC). ON 01/16 Patient was chest pain free. Hemodynamically and electrically stable overnight. No access site complications. No heart failure on exam. -- Continue DAPT with ASA/Clopidogrel for at least 1 year -- Continue toprol XL, start losartan 25mg daily and spironolactone. -- Start Atorvastatin 40mg daily. -- Will need repeat labs on Saturday. F/up with Dr. Simpson in 1-2 weeks. (2) Hypercholesterolemia: -Patient is not on a statin as she has been concerned about side effects in the past -Spoke to her regarding starting a statin tonight as per Cardiology's recommendations, she expressed that she understood the risks of not starting one tonight. She would like to wait until after the heart cath to see if it is absolutely necessary that she needs to start statin therapy (3) Hypertension: -Noted to be hypertensive on arrival with systolics in the 220's -S/P 10 mg IV labetalol -Patient normally on metoprolol outpatient -Will continue metoprolol, added 0.5 inches of nitro paste for better BP management and anginal symptoms, also adding prn IV labetalol for systolic BP > 160 Plan The patient was discussed with Dr. Hardin at the time of the admission Total Time Total Time Spent Total Time Spent (In Minutes): 35 Discharge Plan Discharge Items Patient Disposition: Home - Self-Care Reason For Visit: HEART ALERT Discharge Diagnosis: ACS Activity: Resume your previous activity Non-emergency contact: Primary Care Provider Call non-emergency contact if: you have any medication questions Follow-up/Referrals: Alirio Parmar CRNP [Primary Care Provider] - 01/29/22 10:15 am Diet: Heart Healthy Addtl Attending Provider Instructions: Good afternoon Mrs. Epperson, You were diagnosed with acute coronary syndrome. Will recommend that you continue on -- Aspirin/Clopidogrel for at least 1 year -- Continue toprol XL, start losartan 25mg daily and spironolactone. -- Start Atorvastatin 40mg daily. -- Will need repeat labs on Saturday. Please followup with Dr. Simpson in 1-2 weeks. [phone] Best regards, Renato Galindo Pending Studies at Discharge: No Stand-Alone Forms: [facility] PPT Reasearch, Smoking Cessation Medications and DC Order Prescriptions: New clopidogrel 75 mg Tablet 75 mg PO QAM Qty: 30 0RF atorvastatin 40 mg Tablet 40 mg PO QAM Qty: 30 0RF losartan 25 mg Tablet 25 mg PO QAM Qty: 30 0RF spironolactone 25 mg Tablet 12.5 mg PO DAILY Qty: 30 0RF aspirin 81 mg Tablet,Delayed Release (Dr/Ec) 81 mg PO QAM Qty: 30 0RF Continued multivitamin tablet 1 tab PO 3XWK cholecalciferol (vitamin D3) 5,000 unit capsule 10,000 units PO DAILY metoprolol succinate 25 mg tablet extended release 24 hr 25 mg PO DAILY Qty: 90 1RF Discharge Orders: Discharge Order (Routine); Ordered 01/16/22 Ordered By: Renato Galindo Admission Data Admit Date/Time: 01/14/22 17:27 Attending Provider: Renato Galindo Admit Provider: Wallace Hardin Primary Care Provider: Alirio Parmar Other Providers: Wallace Hardin ; Allen Simpson Other Interventions: Discharge Summary Assessment (RN) Last Done: 01/16/22 14:09 Coding Level of Care Code D/C DAY MANAGEMENT >30 MINS Diagnoses ACS (acute coronary syndrome) I24.9 Hypercholesterolemia E78.00 Hypertension I10 Hypertension type: essential hypertension
--- NOTE | 2022-02-16 13:05 | Coding Query ---
To promote full compliance with coding requirements relating to patient care, provider participation is requested in all cases of seating and mobility technologist uncertainty. Please assist us with the question(s) below: Coding Question(s): The diagnosis below was documented and then subsequently fell off all further documentation. Please indicate if it is still a possible diagnosis or ruled out. Physician's Response(s): MYOCARIDAL INFARCTION ( x ) Diagnosed and POA ( ) Diagnosed and not POA ( ) Ruled out ( ) Other (please specify) MTDD
== END 2022-01-16 14:43 | disposition home or self-care (01) | DRG 247 ==
LOC: ED 16:26 → 2S 17:27 → SUATTDRO 17:27 → 2S 18:13
PROC: CLB.CCO (2022-01-15 12:00)